=== PATIENT | male | born 1940 | race African-American/Black ===

== ENCOUNTER 2020-01-31 15:41 | Emergency (ER) | payer MEDICARE, OTHER ==
[2020-01-31 16:47] LABS: Bilirubin Negative (Negative); Blood, Urine Trace (Negative); Glucose, Urine (Dipstick) Negative (Negative); Ketone, Urine Trace mg/dL (Negative); Leukocyte Moderate (Negative); Nitrite Negative (Negative); Protein, Urine (Dipstick) > or equal to 300 mg/dL (Neg-Trace); Urobilinogen 0.2 mg/dL (Less than 2)
--- NOTE | 2020-01-31 16:47 | RAD ---
Exam: Chest one view HISTORY:Pain Comparison: None FINDINGS: Cardiac silhouette: Normal Aorta: Unremarkable Pulmonary vessels: Normal Costophrenic angles: Clear LUNGS: No masses or consolidation. Pneumothorax: None Osseous abnormalities: None IMPRESSION: No acute cardiopulmonary process.
[2020-01-31 16:55] LABS: Clarity Hazy (Clear)
[2020-01-31 16:57] LABS: WBC/HPF 21-50 HPF (0-3)
[2020-01-31 16:58] LABS: Bacteria/HPF 4+ HPF (None Seen); Squamous Epithelial 0-3 HPF (0-3)
[2020-01-31 16:58] LABS: ALT (SGPT) 8 U/L (8-55); AST (SGOT) 16 U/L (5-34); Albumin 4.3 g/dL (3.4-4.8); Alkaline Phosphatase 65 U/L (40-110); Anion Gap 19 mmol/L (10-20); BUN (Urea Nitrogen) 27 mg/dL (8.4-25.7); Bilirubin, Total 0.3 mg/dL (0.2-1.2); Calc. Creatinine Clearance 0 mL/min (70-130); Calcium 8.8 mg/dL (7.8-10.44); Carbon Dioxide 20 mmol/L (23-31); Chloride 109 mmol/L (98-107); Estimated GFR-MDRD 28; Globulin 3.9 g/dL (2.4-3.5); Glucose 109 mg/dL (83-110); Potassium 4.3 mmol/L (3.5-5.1); Protein, Total 8.2 g/dL (5.8-8.1); Sodium 144 mmol/L (136-145)
[2020-01-31] MEDS ORDERED: cefTRIAXone\\ROCEPHIN 1 GM VIAL ONE (17:09)
[2020-01-31] MEDS ORDERED: Ondansetron PF 4 MG/2 ML Vial ONE (17:09)
[2020-01-31] MEDS ORDERED: Sodium Chloride 0.9% 100 ML ONE (17:10)
[2020-01-31 17:16] LABS: Anisocytosis MODERATE=16-30 cells (100X) (0-5/hpf); Band 15 % (5-11); Basophilic Stippling SLIGHT = 1-2 cells (100X) (None Seen); Eosinophils 1 % (0-10); Hemoglobin 8.8 g/dL (14.0-18.0); Lymphocytes 20 % (21-51); MDiff Complete? YES; Macrocytosis SLIGHT = 6-15 cells (100X) (0-5/hpf); Mean Corpuscular HGB CONC 29.8 g/dL (32.0-36.0); Mean Corpuscular Hemoglobin 27.3 pg (27.0-31.0); Mean Corpuscular Volume 91.5 fL (78.0-98.0); Mean Platelet Volume 7.8 fL (7.4-10.4); Metamyelocyte 8 % (0-0); Monocytes 4 % (0-10); Myelocyte 7 % (0-0); Neutrophil 40 % (42-75); Nucleated RBC 6 % (0); Platelet Count 148 thou/uL (130-400); Platelet Morphology Comment Appears Adequate; Polychromasia MODERATE = 3-4 cells (100X) (0-2/hpf); RBC Distribution Width 20.3 % (11.5-14.5); Reactive Lymphocytes 5 % (0-10); Red Blood Cell (RBC) Count 3.21 mill/uL (4.70-6.10); Tear Drops SLIGHT = 2-5 cells (100X) (0-1/hpf); White Blood Cell (WBC) Count 11.7 thou/uL (4.8-10.8)
== END 2020-01-31 19:35 | disposition short-term general hospital (02) ==
LOC: NAV ERS 15:41
DX: N39.0 Urinary tract infection, site not specified (principal); D72.825 Bandemia; D75.81 Myelofibrosis; N28.9 Disorder of kidney and ureter, unspecified; E78.5 Hyperlipidemia, unspecified; I10 Essential (primary) hypertension; Z79.899 Other long term (current) drug therapy
CPT/HCPCS: 71045; 80053; 81003; 81015; 83605; 84443; 84484; 85025; 87077; 87086; 93005; 94760; 96365; 96375; J0696; J2405; J3490

== ENCOUNTER 2020-02-18 21:30 | Inpatient (IN) | payer OTHER ==
[2020-02-18 21:47] VITALS: BMI 19.6
[2020-02-18] MEDS ORDERED: Ondansetron ODT 4 MG TAB PO PRN (23:26)
[2020-02-18] MEDS ORDERED: Promethazine HCl 25 MG/ML VIAL IM PRN (23:27)
[2020-02-18] MEDS ORDERED: Boudreaux's Butt Paste 60 GM TUBE TOP PRN (23:31)
[2020-02-18] MEDS ORDERED: Bisacodyl 10 MG SUPP PR PRN (23:32)
[2020-02-18] MEDS ORDERED: hydrALAZINE 20 MG/ML VIAL SLOW IVP PRN (23:35)
[2020-02-18] MEDS ORDERED: Melatonin 3 MG TAB PO PRN (23:36)
[2020-02-18] MEDS ORDERED: EPOETIN ALFA-EPBX (ESRD) 10,000 UNIT/ML VIAL SC SCH (23:45)
[2020-02-18] MEDS ORDERED: Gabapentin 300 MG CAP PO SCH (23:45)
[2020-02-19] MEDS: Famotidine/PF 20 mg/2ml Vial SLOW IVP SCH (08:42)
[2020-02-19] MEDS: Gabapentin 300 MG CAP PO SCH ×3 (08:42→20:43)
[2020-02-19] MEDS: Lidocaine 5% Patch TD SCH (08:42)
[2020-02-19] MEDS: Calcitriol 0.25 MCG CAP PO SCH (08:42)
[2020-02-19] MEDS: Calcium Carbonate 500 MG ChewTAB PO SCH ×3 (08:42→17:26)
[2020-02-19] MEDS: Acetaminophen 325 MG TAB PO PRN ×2 (13:51→20:45)
[2020-02-19] MEDS: traMADol HCl 50 MG TAB PO PRN ×2 (13:51→20:43)
[2020-02-19] MEDS: Lidocaine Patch Removal 1 EACH TOP SCH (21:28)
[2020-02-20] MEDS: traMADol HCl 50 MG TAB PO PRN (08:02)
[2020-02-20] MEDS: Calcium Carbonate 500 MG ChewTAB PO SCH ×3 (08:05→17:09)
[2020-02-20] MEDS: Lidocaine 5% Patch TD SCH (08:05)
[2020-02-20] MEDS: Calcitriol 0.25 MCG CAP PO SCH (08:06)
[2020-02-20] MEDS: Gabapentin 300 MG CAP PO SCH ×4 (08:07→20:41)
[2020-02-20] MEDS: Famotidine/PF 20 mg/2ml Vial SLOW IVP SCH (08:07)
[2020-02-20] MEDS: Bisacodyl 10 MG SUPP PR SCH (20:38)
[2020-02-20] MEDS: Polyethylene Glycol 3350 17 GM Packet PO SCH (20:38)
[2020-02-20] MEDS: Lidocaine Patch Removal 1 EACH TOP SCH (20:41)
[2020-02-21] MEDS: Polyethylene Glycol 3350 17 GM Packet PO SCH (08:12)
[2020-02-21] MEDS: Bisacodyl 10 MG SUPP PR SCH ×2 (08:13→20:58)
[2020-02-21] MEDS: Calcitriol 0.25 MCG CAP PO SCH (08:13)
[2020-02-21] MEDS: Gabapentin 300 MG CAP PO SCH (08:13)
[2020-02-21] MEDS: Famotidine/PF 20 mg/2ml Vial SLOW IVP SCH (08:13)
[2020-02-21] MEDS: Calcium Carbonate 500 MG ChewTAB PO SCH ×3 (08:13→18:58)
[2020-02-21] MEDS: Lidocaine 5% Patch TD SCH (08:16)
--- NOTE | 2020-02-21 11:20 | PRG ---
DATE OF SERVICE: 02/19/2020 SUBJECTIVE: The patient feels well with only complaints of constipation. He has been cooperating well with therapy and he is doing well after dialysis yesterday. He has no shortness of breath, chest pain, or abdominal pain, is eating fairly well. OBJECTIVE: VITAL SIGNS: Show temperature, however, 96.7, pulse 89, respirations 22, O2 sats 98% on room air, blood pressure 136/61. LUNGS: Clear. CARDIAC: Shows regular rhythm. ABDOMEN: Soft and nontender. SKIN/EXTREMITIES: Display decreased skin turgor. No edema, clubbing, or cyanosis. NEUROLOGIC: Shows no focal findings. ASSESSMENT: 1. End-stage renal disease, on hemodialysis. 2. Severe deconditioning, on PT/OT. 3. Peripheral vascular disease, asymptomatic. 4. Hypertension, controlled to goal. 5. Benign prostatic hypertrophy with lower tract obstructive symptoms, stable. PLAN: 1. Continue PT, OT. 2. MiraLAX 17 g twice daily. Colace twice daily. 3. Monitor vital signs closely with therapy. 4. Continue hemodialysis 3 times weekly. 5. Obtain labs at the end of the week. Job ID: [id number]
--- NOTE | 2020-02-21 11:37 | PRG ---
DATE OF SERVICE: 02/20/2020 SUBJECTIVE: The patient feels well, up working with therapy with no complaints. OBJECTIVE: VITAL SIGNS: Show temperature 97.9, pulse 105, respirations 20, O2 saturations 100% on room air, temperature was 100.6 yesterday. LUNGS: Clear. CARDIAC: Shows regular rhythm. ABDOMEN: Soft and nontender. SKIN/EXTREMITIES: Display no edema, clubbing, or cyanosis. ASSESSMENT: 1. Stable end-stage renal disease, going to hemodialysis today and 3 times weekly. 2. Deconditioning, improving with therapy. 3. Hypertension, controlled to goal. 4. Peripheral vascular disease, asymptomatic. 5. Myelofibrosis, stable. PLAN: CBC and comprehensive metabolic profile in the a.m. Continue PT, OT, dialysis this afternoon. Monitor vital signs closely with therapy. Stress ulcer and DVT prophylaxis. Job ID: [id number]
[2020-02-21 13:23] LABS: ALT (SGPT) 11 U/L (8-55); AST (SGOT) 29 U/L (5-34); Albumin 3.5 g/dL (3.4-4.8); Alkaline Phosphatase 101 U/L (40-110); Anion Gap 19 mmol/L (10-20); BUN (Urea Nitrogen) 33 mg/dL (8.4-25.7); Bilirubin, Total 0.6 mg/dL (0.2-1.2); Calc. Creatinine Clearance 25 mL/min (70-130); Calcium 8.4 mg/dL (7.8-10.44); Carbon Dioxide 23 mmol/L (23-31); Chloride 103 mmol/L (98-107); Estimated GFR-MDRD 40; Globulin 4.2 g/dL (2.4-3.5); Glucose 98 mg/dL (83-110); Potassium 4.4 mmol/L (3.5-5.1); Protein, Total 7.7 g/dL (5.8-8.1); Sodium 141 mmol/L (136-145)
[2020-02-21] MEDS ORDERED: Polyethylene Glycol 3350 17 GM Packet PO PRN (16:21)
[2020-02-21 16:48] LABS: Hemoglobin 9.6 g/dL (14.0-18.0); Mean Corpuscular HGB CONC 30.7 g/dL (32.0-36.0); Mean Corpuscular Hemoglobin 27.8 pg (27.0-31.0); Mean Corpuscular Volume 90.4 fL (78.0-98.0); Mean Platelet Volume 11.2 fL (7.4-10.4); Platelet Count 119 thou/uL (130-400); RBC Distribution Width 16.1 % (11.5-14.5); Red Blood Cell (RBC) Count 3.46 mill/uL (4.70-6.10); White Blood Cell (WBC) Count 16.9 thou/uL (4.8-10.8)
--- NOTE | 2020-02-21 17:00 | HP ---
HISTORY OF PRESENT ILLNESS: The patient is a very pleasant 79-year-old black male with a significant history of myelofibrosis, benign prostatic hypertrophy, hypertension, chronic kidney disease, has recently been admitted to [facility] for urinary tract infection with subsequent finding of high-grade small-bowel obstruction requiring exploratory laparotomy and lysis of adhesions. He developed postoperatively complications of hypoxic respiratory failure requiring extended ventilator management. He also had acute kidney injury with progressive worsening of renal function with failure to recover and subsequently was initiated on dialysis by Dr. Addy King. He has been getting dialysis on Monday, , and Monday and has slowly been getting stronger and stronger with advanced diet, but was requiring extensive physical therapy because of significant weakness secondary to his surgery and dialysis and respiratory failure. He is breathing much better. Surgery has signed off the patient, but he has been unable to maintain his ADLs and therefore was transferred to [facility] SN[facility] for continued PT/OT and outpatient dialysis. PAST MEDICAL HISTORY: Remarkable for the above-mentioned chronic kidney disease stage 3, hypertension, hyperlipidemia, benign prostatic hypertrophy, peripheral vascular disease, myelofibrosis. PAST SURGICAL HISTORY: Positive for right femoral arterial bypass, bone marrow biopsy. FAMILY MEDICAL HISTORY: Noncontributory. SOCIAL HISTORY: He is a nonsmoker, nondrinker. He obtains his care at the [facility] in [place]. MEDICATIONS: On admission to [facility], he was taking medications of; 1. Tramadol 50 mg as needed for pain. 2. Nepro supplemental nutrition twice daily. 3. Phenergan 25 mg as needed. 4. Zofran 4 mg as needed. 5. MiraLAX 17 g as needed. 6. Gabapentin 300 mg 3 times daily. 7. daily. REVIEW OF SYSTEMS: HEENT: He denies any headaches, dizziness, change in vision or hearing, hoarseness or dysphagia. PULMONARY: He denies cough, sputum production, pneumonia, asthma, or tuberculosis. CARDIOVASCULAR: He has a history of hypertension, hyperlipidemia, and claudication with peripheral vascular disease in the right leg, status post femoral arterial bypass. GENITOURINARY: He has decreased urinary stream and nocturia treated with Myrbetriq 25 mg daily, finasteride 5 mg daily, Plavix 75 daily, carvedilol 12.5 twice daily, atorvastatin 10 daily, amlodipine 10 daily, tamsulosin 0.4 nightly. These are in addition to his previous discharge medications. PHYSICAL EXAMINATION: GENERAL: The patient is a thin, cachectic black male, appears weak, but no acute distress. VITAL SIGNS: Show him to have blood pressure of 121/57, temperature is 99, pulse 94, respirations 18, O2 sats 97% on room air. HEENT: Pupils equal, round, and reactive to light and accommodation. Sclerae anicteric. Conjunctivae pale. Oral mucous membranes well dehydrated. NECK: Supple. There are no nodes or masses. JVP is not elevated. LUNGS: Show decreased breath sounds with no rales or rhonchi. CARDIAC: Shows regular rhythm with an S4 gallop. No murmurs. ABDOMEN: Soft and nontender with no masses or organomegaly. SKIN/EXTREMITIES: Show central dialysis catheter in place. Decreased skin turgor. No edema, clubbing, or cyanosis. NEUROLOGIC: Intact. LABORATORY DATA: Most recent laboratory shows white count of 14,300, hematocrit 23, hemoglobin 7.5. Sodium 139, potassium 3.7, chloride 104, bicarb 25, BUN 25, creatinine 2.5. PTH 372. There is no recent urinalysis. ASSESSMENT: 1. End-stage renal disease, on hemodialysis 3 times weekly, being followed by Dr. King with apparent no recover from acute kidney injury on chronic kidney disease. 2. Small bowel obstruction, status post lysis of adhesion with complete recovery. 3. Severe deconditioning, status post recent surgery and acute on chronic kidney disease. 4. Myelofibrosis, being followed at [facility], stable. 5. Benign prostatic hypertrophy, lower tract obstructive symptoms, being treated with finasteride and Myrbetriq. 6. Peripheral vascular disease, stable on Plavix. No claudication. PLAN: 1. Continue PT, OT. 2. Continue pre-hospitalization medications. 3. Continue dialysis 3 times weekly. 4. Stress ulcer and DVT prophylaxis. Job ID: [id number]
--- NOTE | 2020-02-21 17:22 | PRG ---
DATE OF SERVICE: 02/21/2020 SUBJECTIVE: The patient feels well except for several loose bowel movements after having his MiraLAX. Docusate made routinely twice daily. He got his dialysis at this time with no shortness of breath or chest pain. He is eating well and did cooperate with therapy. OBJECTIVE: VITAL SIGNS: Shows blood pressure is 118/70, pulse 106, temperature is , O2 saturations 97% on room air. LUNGS: Clear. CARDIAC: Showed regular rhythm. ABDOMEN: Soft and nontender. ASSESSMENT: 1. Stable end-stage renal disease, on hemodialysis. 2. Resolved intestinal obstruction. 3. Stable myelofibrosis. 4. Improving deconditioning. PLAN: 1. Continue PT and OT. 2. Continue hemodialysis, Monday, and Monday. 3. Monitor closely. 4. Review labs and therapy notes. 5. Stress increased oral intake. Job ID: [id number]
[2020-02-21] MEDS: Carvedilol 6.25 MG TAB PO SCH (18:58)
[2020-02-21 20:10] LABS: Band 4 % (5-11); Eosinophils 1 % (0-10); Lymphocytes 20 % (21-51); MDiff Complete? YES; Monocytes 15 % (0-10); Neutrophil 60 % (42-75); Nucleated RBC 1 % (0)
[2020-02-21] MEDS: Famotidine 20 MG TAB PO SCH (20:57)
[2020-02-21] MEDS: Tamsulosin HCl 0.4 MG CAP PO SCH (20:57)
[2020-02-21] MEDS: Melatonin 3 MG TAB PO PRN (20:57)
[2020-02-21] MEDS: Atorvastatin Calcium 10 MG TAB PO SCH (20:58)
[2020-02-21] MEDS: Lidocaine Patch Removal 1 EACH TOP SCH (20:58)
[2020-02-22] MEDS: traMADol HCl 50 MG TAB PO PRN ×2 (02:15→19:53)
[2020-02-22] MEDS: Carvedilol 6.25 MG TAB PO SCH ×2 (08:50→17:04)
[2020-02-22] MEDS: Lidocaine 5% Patch TD SCH (08:50)
[2020-02-22] MEDS: Calcium Carbonate 500 MG ChewTAB PO SCH ×3 (08:50→17:05)
[2020-02-22] MEDS: Ferrous Gluconate 324 MG TAB PO SCH (08:54)
[2020-02-22] MEDS: Clopidogrel Bisulfate 75 MG TAB PO SCH (08:55)
[2020-02-22] MEDS: Gabapentin 100 MG CAP PO SCH (08:55)
[2020-02-22] MEDS: Famotidine 20 MG TAB PO SCH ×2 (08:56→19:59)
[2020-02-22] MEDS: Bisacodyl 10 MG SUPP PR SCH ×2 (08:57→20:03)
[2020-02-22] MEDS: Calcitriol 0.25 MCG CAP PO SCH (08:57)
[2020-02-22] MEDS: Finasteride 5 MG TAB PO SCH (08:58)
[2020-02-22] MEDS ORDERED: Gabapentin 300 MG CAP PO SCH (09:00)
[2020-02-22] MEDS: Atorvastatin Calcium 10 MG TAB PO SCH (19:59)
[2020-02-22] MEDS: Melatonin 3 MG TAB PO PRN (19:59)
[2020-02-22] MEDS: Tamsulosin HCl 0.4 MG CAP PO SCH (19:59)
[2020-02-22] MEDS: Lidocaine Patch Removal 1 EACH TOP SCH (20:00)
--- NOTE | 2020-02-22 21:28 | PRG ---
DATE OF SERVICE: 02/22/2020 SUBJECTIVE: The patient lying in in the bed, feels well except for intermittent severe spasms in his right calf. This resolves with hot packs, but occurs intermittently throughout the day. He has no shortness of breath or chest pain, nausea or vomiting. OBJECTIVE: VITAL SIGNS: Shows his temperature is 98, pulse 86, respirations 20, O2 sats 94% on room air, blood pressure 134/64. LABORATORY DATA: White count 16,900 with hematocrit 31, hemoglobin 11.6. Sodium 141, potassium 4.4, chloride 103, bicarb 23, BUN 33, creatinine 1.96, on dialysis, glucose 98, calcium 8.4. ASSESSMENT: 1. Acute on chronic renal failure, appears to be end-stage renal disease, on chronic dialysis, this time being monitored by Nephrology. Dialysis 3 times weekly. 2. History of intestinal obstruction, resolved with surgery signed off. 3. Recurrent muscle spasms. Treat with hot packs and pain medications, it appears to improve with these. 4. Stable myelofibrosis with persistent leukocytosis. No evidence of infection. 5. Deconditioning, improving with therapy. PLAN: 1. Continue PT, OT. 2. Continue dialysis 3 times weekly. 3. Hot packs to right calf and monitor closely. I do not feel this is a deep venous thrombosis. 4. Monitor laboratory again next week. Job ID: [id number]
[2020-02-23] MEDS: Bisacodyl 10 MG SUPP PR SCH ×2 (08:43→21:06)
[2020-02-23] MEDS: Calcium Carbonate 500 MG ChewTAB PO SCH ×3 (08:43→17:30)
[2020-02-23] MEDS: Clopidogrel Bisulfate 75 MG TAB PO SCH (08:44)
[2020-02-23] MEDS: Carvedilol 6.25 MG TAB PO SCH ×2 (08:44→17:29)
[2020-02-23] MEDS: Gabapentin 100 MG CAP PO SCH (08:44)
[2020-02-23] MEDS: Famotidine 20 MG TAB PO SCH ×2 (08:44→21:07)
[2020-02-23] MEDS: Ferrous Gluconate 324 MG TAB PO SCH (08:44)
[2020-02-23] MEDS: Finasteride 5 MG TAB PO SCH (08:44)
[2020-02-23] MEDS: Calcitriol 0.25 MCG CAP PO SCH (08:45)
[2020-02-23] MEDS: Lidocaine 5% Patch TD SCH (08:45)
[2020-02-23] MEDS: traMADol HCl 50 MG TAB PO PRN ×2 (13:29→21:07)
[2020-02-23] MEDS: Acetaminophen 325 MG TAB PO PRN (21:06)
[2020-02-23] MEDS: Tamsulosin HCl 0.4 MG CAP PO SCH (21:06)
[2020-02-23] MEDS: Atorvastatin Calcium 10 MG TAB PO SCH (21:07)
[2020-02-23] MEDS: Lidocaine Patch Removal 1 EACH TOP SCH (21:08)
[2020-02-24] MEDS: Lidocaine 5% Patch TD SCH (08:34)
[2020-02-24] MEDS: Famotidine 20 MG TAB PO SCH ×2 (08:35→21:02)
[2020-02-24] MEDS: Gabapentin 100 MG CAP PO SCH (08:35)
[2020-02-24] MEDS: Ferrous Gluconate 324 MG TAB PO SCH (08:35)
[2020-02-24] MEDS: Clopidogrel Bisulfate 75 MG TAB PO SCH (08:35)
[2020-02-24] MEDS: Finasteride 5 MG TAB PO SCH (08:35)
[2020-02-24] MEDS: Calcitriol 0.25 MCG CAP PO SCH (08:35)
[2020-02-24] MEDS: Carvedilol 6.25 MG TAB PO SCH ×2 (08:35→16:33)
[2020-02-24] MEDS: Calcium Carbonate 500 MG ChewTAB PO SCH ×3 (08:35→16:33)
[2020-02-24] MEDS: Bisacodyl 10 MG SUPP PR SCH ×2 (08:37→21:03)
[2020-02-24] MEDS: Tamsulosin HCl 0.4 MG CAP PO SCH (21:03)
[2020-02-24] MEDS: Atorvastatin Calcium 10 MG TAB PO SCH (21:03)
[2020-02-24] MEDS: Lidocaine Patch Removal 1 EACH TOP SCH (21:04)
[2020-02-24] MEDS: traMADol HCl 50 MG TAB PO PRN (21:04)
[2020-02-25 05:46] LABS: Anion Gap 16 mmol/L (10-20); Anisocytosis SLIGHT = 6-15 cells (100X) (0-5/hpf); BUN (Urea Nitrogen) 38 mg/dL (8.4-25.7); Band 25 % (5-11); Calc. Creatinine Clearance 30 mL/min (70-130); Calcium 8.7 mg/dL (7.8-10.44); Carbon Dioxide 24 mmol/L (23-31); Chloride 105 mmol/L (98-107); Eosinophils 2 % (0-10); Estimated GFR-MDRD 50; Glucose 86 mg/dL (83-110); Hemoglobin 6.7 g/dL (14.0-18.0); Hypochromia SLIGHT = 6-15 cells (100X) (0-5/hpf); Lymphocytes 20 % (21-51); MDiff Complete? YES; Mean Corpuscular HGB CONC 30.6 g/dL (32.0-36.0); Mean Corpuscular Hemoglobin 27.8 pg (27.0-31.0); Mean Corpuscular Volume 90.8 fL (78.0-98.0); Mean Platelet Volume 10.6 fL (7.4-10.4); Metamyelocyte 5 % (0-0); Monocytes 4 % (0-10); Neutrophil 44 % (42-75); Nucleated RBC 2 % (0); Ovalocytes SLIGHT = 2-5 cells (100X) (0-1/hpf); Platelet Count 107 thou/uL (130-400); Platelet Morphology Comment Appears Decreased; Polychromasia SLIGHT = 2-3 cells (100X) (0-2/hpf); Potassium 4.6 mmol/L (3.5-5.1); RBC Distribution Width 16.4 % (11.5-14.5); Red Blood Cell (RBC) Count 2.43 mill/uL (4.70-6.10); Sodium 140 mmol/L (136-145)
--- NOTE | 2020-02-25 08:01 | PRG ---
DATE OF SERVICE: 02/24/2020 SUBJECTIVE: This is an 79-year-old male who was originally admitted for PT and OT Services following previous admission to [facility] for a UTI and subsequent small bowel obstruction. Patient was started on dialysis by Dr. Addy King. Patient has been going through dialysis well, however, his last session was extended according to him. He was therefore approximately 7 hours with different regimens being used for dialysis. This was very distressing for the patient. He did not like being there for that long. Today, he states that he does not want to go to dialysis because he does not understand why he is going there and he did not like how long it took last time. I discussed with him that he was put on dialysis initially at [facility] by Dr. King because the kidneys were not processing well. I discussed that we would just need to monitor his chemistries and consult Dr. King to see if he still requires dialysis. He is actually putting out a liter of urine through his catheter and is making urine. I informed him that he should go through with dialysis today and then, we will talk with Dr. King later this week to see what his thoughts are. OBJECTIVE: VITAL SIGNS: Today, 98 temperature, pulse 92, respiratory rate 22, 100% saturations on room air, blood pressure 130/60. GENERAL: Patient is a well-appearing 79-year-old male, in no acute distress. Lying in bed comfortably. He does have intermittent muscle spasms when I am talking to him, which does cause him to have some pain. However, overall, he is doing well. RESPIRATORY: Clear to auscultation bilaterally with no wheeze or rhonchi. CV: Regular rate and rhythm. No murmurs, gallops, or rubs. EXTREMITIES: He does have a temporary dialysis port in his left subcu chest with no erythema or warmth surrounding it. No edema seen. ASSESSMENT: 1. Acute on chronic renal failure, appears to be end-stage renal disease, needs dialysis, being monitored by Nephrology. Dialysis 3 times a week. 2. History of intestinal obstruction, resolved. Surgery has signed off on patient. 3. Recurrent muscle spasms. 4. Stable myelofibrosis with persistent leukocytosis. 5. Deconditioning, improving with therapy. PLAN: 1. Continue PT and OT. 2. Continue dialysis 3 times a week. We will get repeat blood work in the morning. We will need to talk to Dr. King about his prognosis and if patient still requires dialysis with him now making urine through his catheter. 3. Continue hot packs to his right calf and in the areas of muscle spasms. Monitor closely. 4. Lab work in a.m. Job ID: [id number]
[2020-02-25] MEDS: Lidocaine 5% Patch TD SCH (09:08)
[2020-02-25] MEDS: Gabapentin 100 MG CAP PO SCH (09:09)
[2020-02-25] MEDS: Carvedilol 6.25 MG TAB PO SCH ×2 (09:09→17:20)
[2020-02-25] MEDS: Calcitriol 0.25 MCG CAP PO SCH (09:09)
[2020-02-25] MEDS: Calcium Carbonate 500 MG ChewTAB PO SCH ×3 (09:09→17:19)
[2020-02-25] MEDS: Ferrous Gluconate 324 MG TAB PO SCH (09:10)
[2020-02-25] MEDS: Famotidine 20 MG TAB PO SCH ×2 (09:10→21:33)
[2020-02-25] MEDS: Finasteride 5 MG TAB PO SCH (09:10)
[2020-02-25] MEDS: Clopidogrel Bisulfate 75 MG TAB PO SCH (09:10)
[2020-02-25] MEDS: Bisacodyl 10 MG SUPP PR SCH ×2 (09:11→21:36)
[2020-02-25] MEDS: Atorvastatin Calcium 10 MG TAB PO SCH (21:33)
[2020-02-25] MEDS: Tamsulosin HCl 0.4 MG CAP PO SCH (21:33)
[2020-02-25] MEDS: Lidocaine Patch Removal 1 EACH TOP SCH (21:35)
[2020-02-26] MEDS: Clopidogrel Bisulfate 75 MG TAB PO SCH (08:00)
[2020-02-26] MEDS: Famotidine 20 MG TAB PO SCH ×2 (08:00→20:52)
[2020-02-26] MEDS: Calcitriol 0.25 MCG CAP PO SCH (08:00)
[2020-02-26] MEDS: Calcium Carbonate 500 MG ChewTAB PO SCH ×3 (08:01→17:00)
[2020-02-26] MEDS: Gabapentin 100 MG CAP PO SCH (08:01)
[2020-02-26] MEDS: Bisacodyl 10 MG SUPP PR SCH ×2 (08:01→20:53)
[2020-02-26] MEDS: Finasteride 5 MG TAB PO SCH (08:01)
[2020-02-26] MEDS: Ferrous Gluconate 324 MG TAB PO SCH (08:01)
[2020-02-26] MEDS: Lidocaine 5% Patch TD SCH (08:05)
[2020-02-26] MEDS: Carvedilol 6.25 MG TAB PO SCH ×2 (08:06→17:00)
[2020-02-26] MEDS ORDERED: EPOETIN ALFA-EPBX (ESRD) 10,000 UNIT/ML VIAL SC SCH (12:30)
[2020-02-26] MEDS: traMADol HCl 50 MG TAB PO PRN (14:32)
[2020-02-26] MEDS: Acetaminophen 325 MG TAB PO PRN (14:32)
[2020-02-26] MEDS: Tamsulosin HCl 0.4 MG CAP PO SCH (20:52)
[2020-02-26] MEDS: Cyclobenzaprine 10 MG TAB PO PRN (20:52)
[2020-02-26] MEDS: Atorvastatin Calcium 10 MG TAB PO SCH (20:52)
[2020-02-26] MEDS: Lidocaine Patch Removal 1 EACH TOP SCH (20:53)
--- NOTE | 2020-02-27 06:44 | PRG ---
DATE OF SERVICE: 02/25/2020 SUBJECTIVE: The patient is complaining of pain in his right calf intermittently. This has responded somewhat to hot packs and is intermittent and mainly occurs at night. There is no history of trauma or swelling. He has not undergone dialysis as his catheter is clogged and he is attempting to have it de-clog at [facility]. OBJECTIVE: LUNGS: Clear. CARDIAC: Shows regular rhythm. EXTREMITIES: Pedal pulses are faint, but palpable. There is no swelling of the right leg, but severe tenderness on palpation. LABORATORY DATA: Shows his white count is down 10,000, hemoglobin down 6.7, hematocrit 22, but he has not received his epoetin last week and will be started on this. His creatinine, however, is down to 1.61. Sodium is 140, potassium 4.6, chloride 105, bicarb is 24. ASSESSMENT: 1. Right leg tenderness, possibly due to arterial insufficiency. 2. Chronic kidney disease, stage 4, improving from acute kidney injury, and we will monitor. 3. Resolving laparotomy from intestinal obstruction. 4. Stable myelofibrosis. PLAN: Continue PT, OT. Hold dialysis. Hot packs to right calf and we will start on tizanidine at night. Continue to monitor laboratory. Job ID: [id number]
--- NOTE | 2020-02-27 06:48 | PRG ---
DATE OF SERVICE: 02/26/2020 SUBJECTIVE: The patient is having severe pain in his right leg at all times now by muscle relaxant and hot packs. This is more consistent apparently now with possible ischemia. His renal function has improved and Nephrology is wished to hold off on dialysis and repeat next week. He is unable to do therapy, however because of pain in his legs. OBJECTIVE: EXTREMITIES: Right calf is soft, but severely tenderness, tender to the touch. Pedal pulses not palpable, but foot is warm. LUNGS: Clear. CARDIAC: Shows regular rhythm. ABDOMEN: Soft and nontender. ASSESSMENT: Severe pain in right calf, most likely arterial, but concerned about doing CT angio because of recent renal failure and we will get abdominal ultrasound. We will get venous Doppler first and discuss with Nephrology about possible CT angio if no improvement or diagnosis tomorrow. Job ID: [id number]
[2020-02-27] MEDS: Lidocaine 5% Patch TD SCH (08:05)
[2020-02-27] MEDS: Calcium Carbonate 500 MG ChewTAB PO SCH ×3 (08:05→17:38)
[2020-02-27] MEDS: Carvedilol 6.25 MG TAB PO SCH ×2 (08:06→17:38)
[2020-02-27] MEDS: Ferrous Gluconate 324 MG TAB PO SCH (08:06)
[2020-02-27] MEDS: Bisacodyl 10 MG SUPP PR SCH ×2 (08:06→21:57)
[2020-02-27] MEDS: Clopidogrel Bisulfate 75 MG TAB PO SCH (08:07)
[2020-02-27] MEDS: Calcitriol 0.25 MCG CAP PO SCH (08:07)
[2020-02-27] MEDS: Gabapentin 100 MG CAP PO SCH (08:07)
[2020-02-27] MEDS: Finasteride 5 MG TAB PO SCH (08:07)
[2020-02-27] MEDS: Famotidine 20 MG TAB PO SCH ×2 (08:07→21:53)
[2020-02-27 08:46] LABS: ALT (SGPT) 18 U/L (8-55); AST (SGOT) 29 U/L (5-34); Albumin 3.6 g/dL (3.4-4.8); Alkaline Phosphatase 78 U/L (40-110); Anion Gap 17 mmol/L (10-20); BUN (Urea Nitrogen) 40 mg/dL (8.4-25.7); Bilirubin, Total 0.5 mg/dL (0.2-1.2); Calc. Creatinine Clearance 28 mL/min (70-130); Calcium 8.7 mg/dL (7.8-10.44); Carbon Dioxide 22 mmol/L (23-31); Chloride 106 mmol/L (98-107); Estimated GFR-MDRD 47; Globulin 3.8 g/dL (2.4-3.5); Glucose 110 mg/dL (83-110); Potassium 4.2 mmol/L (3.5-5.1); Protein, Total 7.4 g/dL (5.8-8.1); Sodium 141 mmol/L (136-145)
[2020-02-27 09:11] LABS: Hemoglobin 6.4 g/dL (14.0-18.0); Mean Corpuscular HGB CONC 31.4 g/dL (32.0-36.0); Mean Corpuscular Volume 89.1 fL (78.0-98.0); Mean Platelet Volume 8.8 fL (7.4-10.4); Platelet Count 113 thou/uL (130-400); RBC Distribution Width 16.2 % (11.5-14.5); White Blood Cell (WBC) Count 8.5 thou/uL (4.8-10.8)
[2020-02-27 09:12] LABS: MDiff Complete? YES
[2020-02-27 09:16] LABS: Anisocytosis SLIGHT = 6-15 cells (100X) (0-5/hpf); Band 11 % (5-11); Hypochromia MODERATE=16-30 cells (100X) (0-5/hpf); Lymphocytes 20 % (21-51); Monocytes 15 % (0-10); Neutrophil 54 % (42-75); Platelet Morphology Comment Appears Decreased
[2020-02-27] MEDS: traMADol HCl 50 MG TAB PO PRN (17:53)
[2020-02-27 20:08] LABS: Hemoglobin 7.5 g/dL (14.0-18.0)
[2020-02-27] MEDS: Atorvastatin Calcium 10 MG TAB PO SCH (21:53)
[2020-02-27] MEDS: Melatonin 3 MG TAB PO PRN (21:54)
[2020-02-27] MEDS: Cyclobenzaprine 10 MG TAB PO PRN (21:54)
[2020-02-27] MEDS: Tamsulosin HCl 0.4 MG CAP PO SCH (21:54)
[2020-02-27] MEDS: HYDROcodone/Acetaminophen 5/325 mg Tablet PO PRN (21:54)
[2020-02-27] MEDS: Lidocaine Patch Removal 1 EACH TOP SCH (21:56)
[2020-02-28] MEDS: HYDROcodone/Acetaminophen 5/325 mg Tablet PO PRN ×2 (03:00→15:53)
[2020-02-28] MEDS: Lidocaine 5% Patch TD SCH (08:40)
[2020-02-28] MEDS: Famotidine 20 MG TAB PO SCH (08:40)
[2020-02-28] MEDS: Ferrous Gluconate 324 MG TAB PO SCH (08:40)
[2020-02-28] MEDS: Gabapentin 100 MG CAP PO SCH (08:40)
[2020-02-28] MEDS: Calcitriol 0.25 MCG CAP PO SCH (08:40)
[2020-02-28] MEDS: Calcium Carbonate 500 MG ChewTAB PO SCH ×3 (08:40→16:31)
[2020-02-28] MEDS: Finasteride 5 MG TAB PO SCH (08:40)
[2020-02-28] MEDS: Clopidogrel Bisulfate 75 MG TAB PO SCH (08:40)
[2020-02-28] MEDS: Carvedilol 6.25 MG TAB PO SCH ×2 (08:41→15:54)
[2020-02-28] MEDS: Bisacodyl 10 MG SUPP PR SCH ×2 (08:41→08:49)
--- NOTE | 2020-02-28 15:31 | PRG ---
DATE OF SERVICE: 02/27/2020 SUBJECTIVE: The patient is having more severe pain in his right leg now at all times with no relief with pain medication and at rest. OBJECTIVE: EXTREMITIES: Showed right foot is still warm but absent pulse. Right calf is tender to palpation, although no swelling. VITAL SIGNS: Show blood pressure of 109/74, temperature is 97, pulse 101, respirations 20, O2 saturations 100% on room air. LUNGS: Clear. CARDIAC: Showed regular rhythm. ABDOMEN: Soft and nontender. SKIN/EXTREMITIES: As above. ASSESSMENT: Severe right leg pain with absent pulse, consistent with arterial ischemia in a patient with severe peripheral vascular disease and a history of a previous right femoral arterial bypass. His renal function has improved to a GFR of 50, but Radiology is concerned about giving him dye. PLAN: Arterial and venous Doppler tomorrow plus possible transfer for tertiary care to Cardiology and Cardiovascular Surgery in [facility], the patient wishes to go there. Continue Plavix. Transfuse 1 unit of packed cells, his hemoglobin is down to 6.4 despite being given Procrit. Job ID: [id number]
[2020-02-28] MEDS: Acetaminophen 325 MG TAB PO PRN (15:52)
[2020-02-28] MEDS: Cyclobenzaprine 10 MG TAB PO PRN (15:52)
[2020-02-28 15:54] VITALS: BP 140/73
[2020-02-28 16:01] VITALS: TEMP 100.3
--- NOTE | 2020-02-29 15:52 | DIS ---
DATE OF ADMISSION: 02/18/2020 DATE OF DISCHARGE: 02/28/2020 [facility]. Date of transfer to [facility], February 28, 2020. FINAL DIAGNOSES: 1. Acute ischemia of the right leg in a patient with previous multiple surgeries of the right leg and a right femoral arterial bypass. 2. Acute kidney injury on chronic kidney injury stabilizing, status post recent dialysis with a GFR stabilizing at 50. 3. Chronic kidney disease with right renal atrophy, being followed by Dr. King with no dialysis for several days. PHYSICAL EXAMINATION: VITAL SIGNS: Now show a blood pressure of 100/54, temperature 97, pulse 79, respirations 17, O2 sats on room air. LUNGS: Clear. CARDIAC: Shows regular rhythm. ABDOMEN: Soft and nontender. Absent pulses of the right leg with tenderness to palpation below the calf touch. LABORATORY DATA: Today his white count is 8500, hematocrit is 23, hemoglobin 7.9. Sodium 141, potassium 4.2, chloride 106, bicarb . Discussed the case with hospitalist, Dr. Shipman, and he feels that he should be transferred to the ER for more emergent evaluation as he has not seen a relief master or cardiovascular surgeon, and does not have a P and is a [place] and follows at the [facility], so transportation arranged to ER and . Job ID: [id number]
--- NOTE | 2020-03-02 11:41 | PQF ---
CLINICAL DOCUMENTATION CLARIFICATION FORM: Dear : Edward Berry MD Date / Time: 03/02/2020 Please exercise your independent, professional judgment in responding to the clarification form. Clinical indicators are provided on the bottom of this form for your review Please check appropriate box(es): Conflicting documentation was noted in the Medical Record; please clarify if patient is being treated/monitored for: [ ] ESRD [ ] CKD stage 4 [ ] Other diagnosis (Please specify if any) [ ] Unable to determine Physician Signature: Date/Time: For continuity of documentation, please document condition throughout progress notes and discharge summary. Thank You. To be completed by CDI/Coding staff for physician review: w Present w Clinical Indicators - Signs / Symptoms / Labs w Results and Location in Medical Record w [ x ] w He also had acute kidney injury with progressive worsening of renal function with failure to recover and subsequently was initiated on dialysis by Dr.Fred arango w H&P on 02/20 w [x ] w End stage renal disease on hemodialysis 3 times weekly. w H&P on 02/20 w [x ] w Chronic kidney disease stage 4, improving from DELANO. w Progress notes on 02/26 w [x ] w Estimated GFR 40 w Laboratory on 02/20 w Present w Risk Factors w Results and Location in Medical Record w [ x] w Hypertension w H&P on 02/20 w [ x] w History of CKD stage 3 w H&P on 02/20 w [ ] w w w Present w Treatments w Results and Location in Medical Record w [ x ] w He got his dialysis at this time with no SOB or chest pain w Progress notes on 02/20 w [ ] w w w [ ] w w CDS/Associate Store Director Signature: AAS Phone #: Date/Time: 2019 This is a permanent part of the Medical Record [facility]
[2020-03-04] MEDS ORDERED: EPOETIN ALFA-EPBX (ESRD) 10,000 UNIT/ML VIAL SC SCH (09:00)
== END 2020-02-28 16:32 | disposition short-term general hospital (02) | DRG 949 ==
LOC: NAV ACUTE 21:30
PROVIDERS: ADMIT Internal Medicine; ATTEND Internal Medicine
PROC: 5A1D70Z Performance of Urinary Filtration, Intermittent, Less than 6 Hours Per Day (ICD-10-PCS; 2020-02-21)
PROC: 30233N1 Transfusion of Nonautologous Red Blood Cells into Peripheral Vein, Percutaneous Approach (ICD-10-PCS; principal; 2020-02-27)
DX: Z48.815 Encounter for surgical aftercare following surgery on the digestive system (principal); D75.81 Myelofibrosis; N17.9 Acute kidney failure, unspecified; E27.40 Unspecified adrenocortical insufficiency; K56.609 Unspecified intestinal obstruction, unspecified as to partial versus complete obstruction; N18.4 Chronic kidney disease, stage 4 (severe); M62.81 Muscle weakness (generalized); I99.8 Other disorder of circulatory system; I73.9 Peripheral vascular disease, unspecified; N40.1 Benign prostatic hyperplasia with lower urinary tract symptoms; R53.81 Other malaise; Z99.2 Dependence on renal dialysis; Z98.890 Other specified postprocedural states; Z79.899 Other long term (current) drug therapy; I12.9 Hypertensive chronic kidney disease with stage 1 through stage 4 chronic kidney disease, or unspecified chronic kidney disease
CPT/HCPCS: 36415; 36430; 80048; 80053; 85025; 86850; 86900; 86901; P9016; Q5105; S0028

== ENCOUNTER 2020-03-12 19:41 | Inpatient (IN) | payer OTHER ==
[2020-03-12] MEDS ORDERED: traMADol HCl 50 MG TAB PO PRN (20:44)
[2020-03-12] MEDS ORDERED: ZINC OXIDE 20% TOP PRN (20:46)
[2020-03-12] MEDS ORDERED: Bisacodyl 10 MG SUPP PR PRN (20:47)
[2020-03-12] MEDS ORDERED: Promethazine HCl 25 MG/ML VIAL IM PRN (20:51)
[2020-03-12] MEDS ORDERED: Boudreaux's Butt Paste 60 GM TUBE TOP PRN (20:52)
[2020-03-12] MEDS: Gabapentin 100 MG CAP PO SCH (21:37)
[2020-03-12] MEDS: HYDROcodone/Acetaminophen 5/325 mg Tablet PO PRN (21:38)
[2020-03-13] MEDS: Acetaminophen 325 MG TAB PO PRN (02:07)
[2020-03-13] MEDS: HYDROcodone/Acetaminophen 5/325 mg Tablet PO PRN ×4 (04:20→20:39)
[2020-03-13 05:46] LABS: Band 10 % (5-11); Eosinophils 2 % (0-10); Hemoglobin 8.3 g/dL (14.0-18.0); Hypochromia SLIGHT = 6-15 cells (100X) (0-5/hpf); Lymphocytes 21 % (21-51); MDiff Complete? YES; Mean Corpuscular HGB CONC 31.3 g/dL (32.0-36.0); Mean Corpuscular Hemoglobin 28.4 pg (27.0-31.0); Mean Corpuscular Volume 90.7 fL (78.0-98.0); Mean Platelet Volume 7.8 fL (7.4-10.4); Monocytes 10 % (0-10); Neutrophil 57 % (42-75); Nucleated RBC 1 % (0); Platelet Count 152 thou/uL (130-400); Platelet Morphology Comment Appears Adequate; RBC Distribution Width 15.3 % (11.5-14.5); Red Blood Cell (RBC) Count 2.92 mill/uL (4.70-6.10)
[2020-03-13 05:47] LABS: Anion Gap 16 mmol/L (10-20); BUN (Urea Nitrogen) 27 mg/dL (8.4-25.7); Calc. Creatinine Clearance 38 mL/min (70-130); Calcium 8.7 mg/dL (7.8-10.44); Carbon Dioxide 23 mmol/L (23-31); Chloride 101 mmol/L (98-107); Estimated GFR-MDRD 71; Glucose 94 mg/dL (83-110); Potassium 4.8 mmol/L (3.5-5.1); Sodium 135 mmol/L (136-145)
[2020-03-13] MEDS: Ferrous Sulfate 325 MG TAB PO SCH ×2 (08:04→17:10)
[2020-03-13] MEDS: Folic Acid 1 MG TAB PO SCH (09:04)
[2020-03-13] MEDS: Gabapentin 100 MG CAP PO SCH ×2 (09:04→20:40)
[2020-03-13] MEDS ORDERED: Loperamide HCl 2 MG CAP PO PRN (09:26)
[2020-03-13] MEDS ORDERED: Ondansetron ODT 4 MG TAB PO PRN (09:26)
[2020-03-13] MEDS: EPOETIN ALFA-EPBX (ESRD) 10,000 UNIT/ML VIAL SC SCH (13:22)
[2020-03-13] MEDS: Melatonin 3 MG TAB PO PRN (20:40)
[2020-03-14] MEDS: HYDROcodone/Acetaminophen 5/325 mg Tablet PO PRN ×4 (04:52→22:40)
[2020-03-14 06:15] LABS: Anion Gap 17 mmol/L (10-20); BUN (Urea Nitrogen) 27 mg/dL (8.4-25.7); Band 6 % (5-11); Calc. Creatinine Clearance 37 mL/min (70-130); Calcium 8.2 mg/dL (7.8-10.44); Carbon Dioxide 22 mmol/L (23-31); Chloride 101 mmol/L (98-107); Estimated GFR-MDRD 69; Glucose 119 mg/dL (83-110); Hemoglobin 8.2 g/dL (14.0-18.0); Hypochromia SLIGHT = 6-15 cells (100X) (0-5/hpf); Lymphocytes 30 % (21-51); MDiff Complete? YES; Mean Corpuscular HGB CONC 31.4 g/dL (32.0-36.0); Mean Corpuscular Hemoglobin 28.2 pg (27.0-31.0); Mean Corpuscular Volume 89.9 fL (78.0-98.0); Mean Platelet Volume 7.6 fL (7.4-10.4); Microcytosis SLIGHT = 6-15 cells (100X) (0-5/hpf); Monocytes 12 % (0-10); Neutrophil 52 % (42-75); Nucleated RBC 1 % (0); Ovalocytes SLIGHT = 2-5 cells (100X) (0-1/hpf); Platelet Count 128 thou/uL (130-400); Platelet Morphology Comment Appears Adequate; Potassium 4.3 mmol/L (3.5-5.1); RBC Distribution Width 15.4 % (11.5-14.5); Sodium 136 mmol/L (136-145); Tear Drops SLIGHT = 2-5 cells (100X) (0-1/hpf); White Blood Cell (WBC) Count 10.2 thou/uL (4.8-10.8)
[2020-03-14] MEDS ORDERED: Melatonin 3 MG TAB PO PRN (07:53)
[2020-03-14] MEDS ORDERED: traMADol HCl 50 MG TAB PO PRN (07:53)
[2020-03-14] MEDS ORDERED: HYDROcodone/Acetaminophen 5/325 mg Tablet PO PRN ×2 (07:53)
[2020-03-14] MEDS ORDERED: Promethazine HCl 25 MG/ML VIAL IM PRN (07:53)
[2020-03-14] MEDS ORDERED: Bisacodyl 10 MG SUPP PR PRN (07:53)
[2020-03-14] MEDS ORDERED: Ferrous Sulfate 325 MG TAB PO SCH (08:00)
[2020-03-14] MEDS ORDERED: ZINC OXIDE 20% TOP PRN (08:05)
[2020-03-14] MEDS: Folic Acid 1 MG TAB PO SCH (08:10)
[2020-03-14] MEDS: Gabapentin 100 MG CAP PO SCH (08:10)
[2020-03-14] MEDS: Ferrous Sulfate 325 MG TAB PO SCH ×2 (08:10→17:58)
[2020-03-14] MEDS ORDERED: EPOETIN ALFA EPBX SC SCH (09:00)
[2020-03-14] MEDS ORDERED: Gabapentin 100 MG CAP PO SCH (09:00)
[2020-03-14] MEDS ORDERED: Folic Acid 1 MG TAB PO SCH (09:00)
--- NOTE | 2020-03-14 09:20 | PDOC.BPN ---
- Brief Progress Note Encounter Date: 03/14/20 Encounter Time: 09:14 SUBJECTIVE: Pt c/o phantom limb pain on R, not well controlled with current Gabapentin. Also Pressure ulcer "tickles" but is not painful. ROS: denies fever, chills, cough, congestion, N/V/D OBJECTIVE: Vital Signs - Most Recent Temp Pulse Resp BP Pulse Ox 97.9 F 90 21 H 126/60 96 03/14/20 08:00 03/14/20 08:00 03/14/20 08:00 03/14/20 08:00 03/14/20 08:00 Laboratory Results - last 24 hr 03/14/20 05:52: WBC 10.2, RBC 2.90 L, Hgb 8.2 L, Hct 26.1 L, MCV 89.9, MCH 28.2, MCHC 31.4 L, RDW 15.4 H, Plt Count 128 L, MPV 7.6, Neutrophils % (Manual) 52, Band Neuts % (Manual) 6, Lymphocytes % (Manual) 30, Monocytes % (Manual) 12 H, Nucleated RBCs # (Man) 1 H, Hypochromia SLIGHT = 6-15 cells, Plt Morphology Comment Appears Adequate, Microcytosis SLIGHT = 6-15 cells, Tear Drop Cells SLIGHT = 2-5 cells, Ovalocytes SLIGHT = 2-5 cells 03/14/20 05:52: Sodium 136, Potassium 4.3, Chloride 101, Carbon Dioxide 22 L, Anion Gap 17, BUN 27 H, Creatinine 1.22, Estimated GFR (MDRD) 69, Glucose 119 H, Calcium 8.2 Physical Exam: Gen: Well-appearing, frail 79 yo M. NAD. uncomfortable from PLP. Resp: CTAB, no wheezes CV: RRR, no murmurs. GI: soft nontender MSK: R AKA site c/d/i. ASSESSMENT: 1. 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 Phantom Limb pain 3. CKD II 4. HTN PLAN -BP well controlled -Increase Gabapentin to 300 BID. consider increasing freq if not helping. -Remove incisions today -Monitor labs -PT/OT -Continue discharge planning -Continue GI/DVT prophy
--- NOTE | 2020-03-14 10:03 | HP ---
HISTORY OF PRESENT ILLNESS: The patient is a very pleasant 79-year-old male with a significant past medical history of myelofibrosis, benign prostatic hypertrophy, hypertension, chronic kidney disease, who is originally admitted to [facility] in [place] for urinary tract infection and was found to have high-grade small bowel obstruction requiring exploratory laparotomy and lysis of adhesions. The patient also developed postoperative complications of hypoxic respiratory failure requiring extended ventilator management. He eventually recovered from this, however, needed to be on dialysis with Dr. Fred King, Monday, , and Monday. The patient recovered well and was requiring extended physical therapy and was transferred here to [facility]. He was originally admitted on February 20 here at [facility]. However, on February 27, there was a concern for arterial occlusion and the patient was sent to the ER in [place]. In the ER, he underwent a CTA with runoff and showed severe peripheral vascular disease and was admitted for a Vascular Surgery consult. Vascular Surgery saw the patient and performed a right [id number] amputation due to his peripheral vascular disease. The patient recovered well from the surgery and again was requiring further PT and OT Services and was transferred back here to [facility] for continued services. During his last hospital stay for the amputation, the patient was found to have urinary tract infection with E coli and Morganella and he was treated with IV antibiotics. Infectious Disease Service was consulted and eventually antibiotics were discontinued by the Primary Service and Infectious Disease. On presentation here to [facility], the patient is doing well, in no acute distress; however, he does complain about his right foot hurting, this is thought to be phantom limb pain as the patient has an AKA on the right. The patient was started on gabapentin for this, which seems to help with the pain. The patient is doing well with no signs of fluid overload. He was taken of dialysis at the last hospital stay and there is no indication for continued dialysis at this time. REVIEW OF SYSTEMS: GENERAL: Denies any fever or chills. RESPIRATORY: Denies any cough or congestion. CARDIO: Denies any chest pain or shortness of breath. ABDOMEN: Denies any nausea or vomiting. EXTREMITIES: Reports phantom limb pain on the right with perceived foot pain. PAST MEDICAL HISTORY: Remarkable for myelofibrosis, benign prostatic hypertrophy, hypertension, chronic kidney disease, peripheral vascular disease. PAST SURGICAL HISTORY: Right femoral artery bypass, now with a right fnden-ewh-haap amputation. FAMILY MEDICAL HISTORY: Noncontributory to current stay. SOCIAL HISTORY: He is nonsmoker, nondrinker. He obtains his care at the [facility] in [place]. MEDICATIONS: 1. Gabapentin 100 p.o. b.i.d. 2. Zinc oxide for pressure ulcer. 3. Bisacodyl 5 mg p.r. daily. 4. Epoetin alonzo 75,000 units subcu every 7 days, last given today on 03/13. 5. Ferrous sulfate 325 mg p.o. b.i.d. 6. Patterson 5 one tablet p.o. q.4 p.r.n. 7. Tramadol 50 mg p.o. q.6 p.r.n. 8. Melatonin 3 mg p.o. at bedtime p.r.n. 9. Promethazine 25 mg q.6 p.r.n. 10. Folate acid 1 mg p.o. daily. VITAL SIGNS: On admission, temperature 97.8, pulse 92, respiratory rate 22, O2 saturation is 95 on room air, blood pressure 130/60. LABORATORY DATA: White count 11.0, hemoglobin and hematocrit are 8.3 and 26.5, platelets 152. Sodium 135, potassium 4.8, chloride 101, carbon dioxide 23, BUN 27, creatinine 1.19, GFR 71, glucose 94, calcium 8.7. PHYSICAL EXAM: General: well-appearing, NAD HENT: no rhinnorhea, or pharyngeal erythema CV: RRR, no murmurs Resp: CTAB, no wheezes Ext: R AKA. incision c/d/i. no erythema. No edema on L leg. ASSESSMENT: 1. Status post right fycja-kii-zfzw amputation, requiring PT and OT Services for new amputation. 2. Hypertension. 3. Chronic kidney disease. 4. Status post small bowel obstruction with laparotomy for lysis of adhesions. 5. Benign prostatic hypertrophy. 6. Peripheral vascular disease, stable on Plavix. PLAN: 1. Continue PT and OT Services. 2. The patient no longer requires dialysis. We will continue to follow with BMPs. 3. Started gabapentin, we will increase as needed for phantom limb pain. 4. Stress ulcer and DVT prophylaxis. 5. Discharge planning for home health with PT and OT services. Job ID: [id number] RISHABH
[2020-03-14] MEDS: Gabapentin 300 MG CAP PO SCH (21:10)
[2020-03-14] MEDS: Acetaminophen 325 MG TAB PO PRN (21:10)
[2020-03-14] MEDS: Melatonin 3 MG TAB PO PRN (21:10)
[2020-03-15] MEDS: HYDROcodone/Acetaminophen 5/325 mg Tablet PO PRN ×3 (05:30→21:47)
[2020-03-15] MEDS: Gabapentin 300 MG CAP PO SCH ×2 (09:07→21:01)
[2020-03-15] MEDS: Folic Acid 1 MG TAB PO SCH (09:07)
[2020-03-15] MEDS: Ferrous Sulfate 325 MG TAB PO SCH ×2 (09:07→16:51)
[2020-03-15] MEDS: Melatonin 3 MG TAB PO PRN (21:02)
[2020-03-16] MEDS: Gabapentin 300 MG CAP PO SCH ×2 (09:04→21:00)
[2020-03-16] MEDS: Ferrous Sulfate 325 MG TAB PO SCH ×2 (09:05→18:02)
[2020-03-16] MEDS: Folic Acid 1 MG TAB PO SCH (09:07)
[2020-03-16] MEDS: HYDROcodone/Acetaminophen 5/325 mg Tablet PO PRN ×2 (12:53→18:27)
[2020-03-16] MEDS: Melatonin 3 MG TAB PO PRN (21:00)
[2020-03-17] MEDS: Gabapentin 300 MG CAP PO SCH ×2 (08:47→20:58)
[2020-03-17] MEDS: Folic Acid 1 MG TAB PO SCH (08:47)
[2020-03-17] MEDS: Acetaminophen 325 MG TAB PO PRN (08:48)
[2020-03-17] MEDS: Ferrous Sulfate 325 MG TAB PO SCH ×2 (08:48→17:13)
[2020-03-17] MEDS: HYDROcodone/Acetaminophen 5/325 mg Tablet PO PRN ×2 (08:48→20:58)
[2020-03-17] MEDS ORDERED: Ondansetron ODT 4 MG TAB SL PRN (11:45)
--- NOTE | 2020-03-17 13:51 | PDOC.BPN ---
- Brief Progress Note Encounter Date: 03/17/20 Encounter Time: 13:32 SUBJECTIVE: Pt c/o phantom limb pain on R. Pain better controlled with Gabapentin. ROS: denies fever, chills, cough, congestion, N/V/D OBJECTIVE: Vital Signs - Most Recent Temp Pulse Resp BP Pulse Ox 97.6 F 88 18 124/66 98 03/17/20 08:00 03/17/20 08:00 03/17/20 08:00 03/17/20 08:00 03/17/20 08:00 Physical Exam: Gen: Well-appearing, frail 79 yo M. NAD. uncomfortable from PLP. Resp: CTAB, no wheezes CV: RRR, no murmurs. GI: soft nontender MSK: R AKA site c/d/i. ASSESSMENT: 1. 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 Phantom Limb pain 3. CKD II 4. HTN PLAN -BP well controlled -Increase Gabapentin to 300 BID. consider increasing freq if not helping. -Remove incisions today -Monitor labs -PT/OT -Continue discharge planning -Continue GI/DVT prophy
[2020-03-17] MEDS: Melatonin 3 MG TAB PO PRN (20:58)
[2020-03-18] MEDS: HYDROcodone/Acetaminophen 5/325 mg Tablet PO PRN ×2 (08:27→20:51)
[2020-03-18] MEDS: Ferrous Sulfate 325 MG TAB PO SCH ×2 (08:27→17:22)
[2020-03-18] MEDS: Gabapentin 300 MG CAP PO SCH ×2 (08:27→20:51)
[2020-03-18] MEDS: Folic Acid 1 MG TAB PO SCH (08:27)
[2020-03-18] MEDS: Melatonin 3 MG TAB PO PRN (20:51)
[2020-03-19] MEDS: Gabapentin 300 MG CAP PO SCH ×2 (08:29→20:50)
[2020-03-19] MEDS: Folic Acid 1 MG TAB PO SCH (08:29)
[2020-03-19] MEDS: Ferrous Sulfate 325 MG TAB PO SCH ×2 (08:29→17:26)
[2020-03-19] MEDS: HYDROcodone/Acetaminophen 5/325 mg Tablet PO PRN ×3 (08:30→23:21)
[2020-03-19] MEDS: Melatonin 3 MG TAB PO PRN (23:22)
[2020-03-20 05:52] LABS: Anion Gap 15 mmol/L (10-20); BUN (Urea Nitrogen) 45 mg/dL (8.4-25.7); Calc. Creatinine Clearance 38 mL/min (70-130); Carbon Dioxide 24 mmol/L (23-31); Chloride 106 mmol/L (98-107); Estimated GFR-MDRD 70; Glucose 90 mg/dL (83-110); Potassium 4.7 mmol/L (3.5-5.1); Sodium 140 mmol/L (136-145)
[2020-03-20 06:03] LABS: Band 22 % (5-11); Basophilic Stippling SLIGHT = 1-2 cells (100X) (None Seen); Eosinophils 1 % (0-10); Hemoglobin 7.5 g/dL (14.0-18.0); Hypochromia MODERATE=16-30 cells (100X) (0-5/hpf); Lymphocytes 24 % (21-51); MDiff Complete? YES; Mean Corpuscular HGB CONC 31.4 g/dL (32.0-36.0); Mean Corpuscular Hemoglobin 28.6 pg (27.0-31.0); Mean Corpuscular Volume 91.4 fL (78.0-98.0); Mean Platelet Volume 7.8 fL (7.4-10.4); Metamyelocyte 9 % (0-0); Monocytes 4 % (0-10); Myelocyte 3 % (0-0); Neutrophil 37 % (42-75); Nucleated RBC 5 % (0); Ovalocytes SLIGHT = 2-5 cells (100X) (0-1/hpf); Platelet Count 110 thou/uL (130-400); Platelet Morphology Comment Appears Decreased; Polychromasia SLIGHT = 2-3 cells (100X) (0-2/hpf); RBC Distribution Width 16.1 % (11.5-14.5); Red Blood Cell (RBC) Count 2.63 mill/uL (4.70-6.10); Tear Drops SLIGHT = 2-5 cells (100X) (0-1/hpf); White Blood Cell (WBC) Count 10.5 thou/uL (4.8-10.8)
[2020-03-20] MEDS: Ferrous Sulfate 325 MG TAB PO SCH ×2 (08:46→16:45)
[2020-03-20] MEDS: Gabapentin 300 MG CAP PO SCH ×2 (08:46→21:07)
[2020-03-20] MEDS: Folic Acid 1 MG TAB PO SCH (08:46)
[2020-03-20] MEDS: HYDROcodone/Acetaminophen 5/325 mg Tablet PO PRN ×3 (09:58→21:07)
[2020-03-20] MEDS ORDERED: Fluconazole 100 MG TAB PO SCH (11:00)
--- NOTE | 2020-03-20 11:01 | PDOC.BPN ---
- Brief Progress Note Encounter Date: 03/20/20 Encounter Time: 10:59 SUBJECTIVE: Phantom limb pain is improving. ROS: denies fever, chills, cough, congestion, N/V/D OBJECTIVE: Active Orders - 24 Hr Vital Signs - Most Recent Temp Pulse Resp BP Pulse Ox 96.2 F L 98 15 135/63 100 03/20/20 08:00 03/20/20 08:00 03/20/20 08:00 03/20/20 08:00 03/20/20 08:00 Physical Exam: Gen: Well-appearing, frail 79 yo M. NAD. uncomfortable from PLP. Resp: CTAB, no wheezes CV: RRR, no murmurs. GI: soft nontender MSK: R AKA site c/d/i. : yeast infection in groin. ASSESSMENT: 1. 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 Phantom Limb pain 3. CKD II 4. HTN 5. Yeast PLAN -BP well controlled -Increase Gabapentin to 300 BID. consider increasing freq if not helping. -Remove incisions today -Monitor labs -PT/OT -Continue discharge planning -Continue GI/DVT prophy -Diflucan today. continue to monitor.
[2020-03-20] MEDS: EPOETIN ALFA-EPBX (ESRD) 10,000 UNIT/ML VIAL SC SCH (11:55)
[2020-03-20] MEDS: Melatonin 3 MG TAB PO PRN (21:07)
[2020-03-21] MEDS: Ferrous Sulfate 325 MG TAB PO SCH ×2 (08:55→16:18)
[2020-03-21] MEDS: Gabapentin 300 MG CAP PO SCH ×2 (08:55→20:37)
[2020-03-21] MEDS: Folic Acid 1 MG TAB PO SCH (08:55)
[2020-03-21] MEDS: HYDROcodone/Acetaminophen 5/325 mg Tablet PO PRN ×2 (08:57→20:36)
--- NOTE | 2020-03-21 16:24 | PRG ---
DATE OF SERVICE: 03/21/2020 SUBJECTIVE: Mr. Coulter is resting in bed. He denies any complaints. OBJECTIVE: VITAL SIGNS: He is afebrile, heart rate 98, respirations 20, oxygen saturation 99% on room air, blood pressure 124/58. CARDIOVASCULAR SYSTEM: S1 and S2 plus. RESPIRATORY SYSTEM: Normal vesicular breath sounds. ABDOMEN: Soft, nontender. Bowel sounds heard in all quadrants. EXTREMITIES: Without cyanosis or clubbing. Right AKA. : Austin catheter is in place. IMPRESSION: 1. Benign prostatic hypertrophy. 2. Hypertension. 3. Peripheral vascular disease, status post right above-knee amputation. 4. Chronic kidney disease. 5. Myelofibrosis. PLAN: 1. Continue current medications. 2. Nutritional support with heart-healthy diet. 3. DVT prophylaxis. 4. Decubitus precautions. 5. Stress ulcer prophylaxis. 6. We will discuss with OT about getting him on in preparation for probable prosthesis. 7. Routine laboratory values. Job ID: [id number]
[2020-03-21] MEDS: Melatonin 3 MG TAB PO PRN (20:37)
[2020-03-22] MEDS: HYDROcodone/Acetaminophen 5/325 mg Tablet PO PRN ×2 (05:51→21:01)
[2020-03-22] MEDS: Ferrous Sulfate 325 MG TAB PO SCH ×2 (08:41→15:58)
[2020-03-22] MEDS: Folic Acid 1 MG TAB PO SCH (08:41)
[2020-03-22] MEDS: Gabapentin 300 MG CAP PO SCH ×2 (08:41→21:01)
[2020-03-22] MEDS: Acetaminophen 325 MG TAB PO PRN (15:47)
--- NOTE | 2020-03-22 16:44 | PRG ---
DATE OF SERVICE: 03/22/2020 SUBJECTIVE: Mr. Coulter is resting in bed. His sister is in the room. He is happy with his progress. Stump is healing nicely. OBJECTIVE: VITAL SIGNS: He is afebrile, heart rate 100, respirations 22, oxygen saturation 96% on room air, and blood pressure 114/74. CARDIOVASCULAR SYSTEM: S1 and S2 plus. RESPIRATORY SYSTEM: Normal vesicular breath sounds. ABDOMEN: Soft and nontender. Bowel sounds heard in all quadrants. EXTREMITIES: Without cyanosis or clubbing. Right AKA is healing well. CENTRAL NERVOUS SYSTEM: Generalized weakness. IMPRESSION: 1. Benign prostatic hyperplasia. 2. Hypertension. 3. Peripheral vascular disease, status post right above-knee amputation. 4. Chronic kidney disease. 5. Myelofibrosis. PLAN: 1. Continue current medications. 2. Nutritional support with heart-healthy diet. 3. DVT prophylaxis. 4. Decubitus precautions. 5. Stump care. 6. Occupational therapy should be able to start using his stump die reamer in preparation for the prosthesis. 7. Dr. Richi gao [facility]. Job ID: [id number]
[2020-03-23] MEDS: Folic Acid 1 MG TAB PO SCH (08:35)
[2020-03-23] MEDS: Ferrous Sulfate 325 MG TAB PO SCH ×2 (08:35→17:56)
[2020-03-23] MEDS: Gabapentin 300 MG CAP PO SCH ×2 (08:35→20:43)
[2020-03-23] MEDS: HYDROcodone/Acetaminophen 5/325 mg Tablet PO PRN ×2 (08:37→20:43)
[2020-03-24 05:51] LABS: Anion Gap 16 mmol/L (10-20); BUN (Urea Nitrogen) 54 mg/dL (8.4-25.7); Calc. Creatinine Clearance 36 mL/min (70-130); Calcium 8.9 mg/dL (7.8-10.44); Carbon Dioxide 22 mmol/L (23-31); Chloride 106 mmol/L (98-107); Estimated GFR-MDRD 70; Glucose 92 mg/dL (83-110); Potassium 4.5 mmol/L (3.5-5.1); Sodium 139 mmol/L (136-145)
[2020-03-24 05:56] LABS: Anisocytosis SLIGHT = 6-15 cells (100X) (0-5/hpf); Band 12 % (5-11); Eosinophils 2 % (0-10); Hemoglobin 7.5 g/dL (14.0-18.0); Hypochromia SLIGHT = 6-15 cells (100X) (0-5/hpf); Lymphocytes 37 % (21-51); MDiff Complete? YES; Mean Corpuscular HGB CONC 31.5 g/dL (32.0-36.0); Mean Corpuscular Hemoglobin 28.4 pg (27.0-31.0); Mean Platelet Volume 8.9 fL (7.4-10.4); Metamyelocyte 4 % (0-0); Monocytes 5 % (0-10); Neutrophil 40 % (42-75); Nucleated RBC 2 % (0); Platelet Count 120 thou/uL (130-400); Platelet Morphology Comment Appears Decreased; Polychromasia SLIGHT = 2-3 cells (100X) (0-2/hpf); RBC Distribution Width 16.7 % (11.5-14.5); Red Blood Cell (RBC) Count 2.63 mill/uL (4.70-6.10); White Blood Cell (WBC) Count 11.2 thou/uL (4.8-10.8)
[2020-03-24] MEDS: Folic Acid 1 MG TAB PO SCH (08:50)
[2020-03-24] MEDS: Ferrous Sulfate 325 MG TAB PO SCH ×2 (08:50→16:52)
[2020-03-24] MEDS: Gabapentin 300 MG CAP PO SCH ×2 (08:50→21:34)
[2020-03-24] MEDS: HYDROcodone/Acetaminophen 5/325 mg Tablet PO PRN ×3 (08:51→21:34)
--- NOTE | 2020-03-24 12:42 | PDOC.BPN ---
- Brief Progress Note Encounter Date: 03/24/20 Encounter Time: 12:40 SUBJECTIVE: doing well. feels like his body is getting used to the AKA now. ROS: denies fever, chills, cough, congestion, N/V/D OBJECTIVE: Vital Signs - Most Recent Temp Pulse Resp BP Pulse Ox 98.9 F 96 20 120/60 96 03/24/20 07:32 03/24/20 07:32 03/24/20 07:32 03/24/20 07:32 03/24/20 07:32 Physical Exam: Gen: Well-appearing, frail 79 yo M. NAD. uncomfortable from PLP. Resp: CTAB, no wheezes CV: RRR, no murmurs. GI: soft nontender MSK: R AKA site c/d/i. ASSESSMENT: 1. 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 Phantom Limb pain, improving 3. CKD II 4. HTN 5. Yeast, improving PLAN -BP well controlled -Cont Gabapentin to 300 BID. consider increasing freq if not helping. -Monitor labs -PT/OT -Continue discharge planning -Continue GI/DVT prophy
[2020-03-24] MEDS: Melatonin 3 MG TAB PO PRN (21:34)
[2020-03-25] MEDS: Folic Acid 1 MG TAB PO SCH (08:26)
[2020-03-25] MEDS: Ferrous Sulfate 325 MG TAB PO SCH ×2 (08:26→17:22)
[2020-03-25] MEDS: Gabapentin 300 MG CAP PO SCH ×2 (08:26→20:47)
--- NOTE | 2020-03-25 12:56 | PDOC.BPN ---
- Brief Progress Note Encounter Date: 03/25/20 Encounter Time: 12:55 SUBJECTIVE: doing well. Has low motivation to work with PT/OT. they are going to have sister come during next session for motivation. ROS: denies fever, chills, cough, congestion, N/V/D OBJECTIVE: Vital Signs - Most Recent Temp Pulse Resp BP Pulse Ox 98.9 F 96 20 120/60 96 03/24/20 07:32 03/24/20 07:32 03/24/20 07:32 03/24/20 07:32 03/24/20 07:32 Physical Exam: Gen: Well-appearing, frail 79 yo M. NAD. uncomfortable from PLP. Resp: CTAB, no wheezes CV: RRR, no murmurs. GI: soft nontender MSK: R AKA site c/d/i. ASSESSMENT: 1. 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 Phantom Limb pain, improving 3. CKD II 4. HTN 5. Yeast, improving PLAN -BP well controlled -Cont Gabapentin 300 BID. consider increasing freq if not helping. -Monitor labs -PT/OT -Continue GI/DVT prophy -PT/OT recommend SNF placement vs home with HH. Pt still requiring extensive therapy. PT/OT are working to determine an appropriate d/c date. -Consulted CM for SNF vs HH
[2020-03-25] MEDS: Melatonin 3 MG TAB PO PRN (20:47)
[2020-03-25] MEDS: HYDROcodone/Acetaminophen 5/325 mg Tablet PO PRN (20:47)
[2020-03-26] MEDS: Ferrous Sulfate 325 MG TAB PO SCH ×2 (08:58→16:46)
[2020-03-26] MEDS: Folic Acid 1 MG TAB PO SCH (08:58)
[2020-03-26] MEDS: Gabapentin 300 MG CAP PO SCH ×2 (08:59→19:45)
[2020-03-26] MEDS: Acetaminophen 325 MG TAB PO PRN (13:05)
[2020-03-26] MEDS: HYDROcodone/Acetaminophen 5/325 mg Tablet PO PRN ×2 (19:43→19:45)
[2020-03-27] MEDS: HYDROcodone/Acetaminophen 5/325 mg Tablet PO PRN ×3 (01:21→20:00)
[2020-03-27] MEDS: Folic Acid 1 MG TAB PO SCH (08:04)
[2020-03-27] MEDS: Ferrous Sulfate 325 MG TAB PO SCH ×2 (08:04→17:14)
[2020-03-27] MEDS: Gabapentin 300 MG CAP PO SCH ×2 (08:04→20:01)
[2020-03-27] MEDS: EPOETIN ALFA-EPBX (ESRD) 10,000 UNIT/ML VIAL SC SCH (12:21)
[2020-03-28 06:32] LABS: Anion Gap 17 mmol/L (10-20); BUN (Urea Nitrogen) 63 mg/dL (8.4-25.7); Calc. Creatinine Clearance 31 mL/min (70-130); Calcium 8.7 mg/dL (7.8-10.44); Carbon Dioxide 22 mmol/L (23-31); Chloride 105 mmol/L (98-107); Estimated GFR-MDRD 61; Glucose 105 mg/dL (83-110); Potassium 4.7 mmol/L (3.5-5.1); Sodium 139 mmol/L (136-145)
[2020-03-28 06:42] LABS: Band 8 % (5-11); Eosinophils 6 % (0-10); Hypochromia SLIGHT = 6-15 cells (100X) (0-5/hpf); Lymphocytes 4 % (21-51); MDiff Complete? YES; Mean Corpuscular HGB CONC 32.3 g/dL (32.0-36.0); Mean Corpuscular Hemoglobin 29.3 pg (27.0-31.0); Mean Corpuscular Volume 90.7 fL (78.0-98.0); Mean Platelet Volume 9.3 fL (7.4-10.4); Metamyelocyte 4 % (0-0); Microcytosis SLIGHT = 6-15 cells (100X) (0-5/hpf); Monocytes 12 % (0-10); Neutrophil 66 % (42-75); Nucleated RBC 2 % (0); Platelet Count 157 thou/uL (130-400); Platelet Morphology Comment Appears Adequate; RBC Distribution Width 17.1 % (11.5-14.5); Red Blood Cell (RBC) Count 2.72 mill/uL (4.70-6.10); White Blood Cell (WBC) Count 13.6 thou/uL (4.8-10.8)
[2020-03-28] MEDS: Ferrous Sulfate 325 MG TAB PO SCH ×2 (08:16→17:10)
[2020-03-28] MEDS: Gabapentin 300 MG CAP PO SCH ×2 (08:16→20:51)
[2020-03-28] MEDS: Folic Acid 1 MG TAB PO SCH (08:16)
--- NOTE | 2020-03-28 08:33 | PDOC.BPN ---
- Brief Progress Note Encounter Date: 03/28/20 Encounter Time: 08:30 SUBJECTIVE: doing well. C/o constipation today. WBC up today. Denies productive cough, or congestion. Does report some blood in urine. ROS: denies fever, chills, cough, congestion, N/V/D OBJECTIVE: Vital Signs - Most Recent Temp Pulse Resp BP Pulse Ox 98.0 F 96 18 121/61 99 03/28/20 07:52 03/28/20 07:52 03/28/20 07:52 03/28/20 07:52 03/28/20 07:52 Laboratory Results - last 24 hr 03/28/20 05:35: WBC 13.6 H, RBC 2.72 L, Hgb 8.0 L, Hct 24.7 L, MCV 90.7, MCH 29.3, MCHC 32.3, RDW 17.1 H, Plt Count 157, MPV 9.3, Neutrophils % (Manual) 66, Band Neuts % (Manual) 8, Lymphocytes % (Manual) 4 L, Monocytes % (Manual) 12 H, Eosinophils % (Manual) 6, Metamyelocytes % (Man) 4 H, Nucleated RBCs # (Man) 2 H, Hypochromia SLIGHT = 6-15 cells, Plt Morphology Comment Appears Adequate, Microcytosis SLIGHT = 6-15 cells 03/28/20 05:35: Sodium 139, Potassium 4.7, Chloride 105, Carbon Dioxide 22 L, Anion Gap 17, BUN 63 H, Creatinine 1.36 H, Estimated GFR (MDRD) 61, Glucose 105, Calcium 8.7 Physical Exam: Gen: Well-appearing, frail 79 yo M. NAD. uncomfortable from PLP. Resp: CTAB, no wheezes CV: RRR, no murmurs. GI: soft nontender MSK: R AKA site c/d/i. ASSESSMENT: 1. 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 Phantom Limb pain, improving 3. CKD II 4. HTN 5. Yeast, improving 6. constipation PLAN -BP well controlled -Cont Gabapentin 300 BID. consider increasing freq if not helping. -Monitor labs -PT/OT -Continue GI/DVT prophy -PT/OT recommend SNF placement vs home with HH. Pt still requiring extensive therapy. PT/OT are working to determine an appropriate d/c date. -Consulted CM for SNF vs HH -WBC increasing. Will get UA, UCx. repeat CBC in AM. -Added Colace PRN
--- NOTE | 2020-03-28 08:55 | RAD ---
RADIOGRAPH CHEST 1 VIEW: DATE: 03/28/2020 HISTORY: 80-year-old male with leukocytosis FINDINGS: There are no airspace densities, pulmonary edema, pneumothorax, or cardiomegaly. The lateral costophr enic angles are sharp. IMPRESSION: No acute cardiopulmonary findings.
[2020-03-28] MEDS: HYDROcodone/Acetaminophen 5/325 mg Tablet PO PRN ×3 (09:39→22:19)
[2020-03-28 12:58] LABS: Bilirubin Negative (Negative); Blood, Urine Trace (Negative); Glucose, Urine (Dipstick) Negative (Negative); Ketone, Urine Negative (Negative); Leukocyte Moderate (Negative); Nitrite Positive (Negative); Protein, Urine (Dipstick) > or equal to 300 mg/dL (Neg-Trace); Specific Gravity, Urine 1.015 (1.005-1.030); Urobilinogen 0.2 mg/dL (Less than 2); pH, Urine 8.5 (5.0-9.0)
[2020-03-28 13:11] LABS: Clarity Hazy (Clear)
[2020-03-28 13:21] LABS: Bacteria/HPF 4+ HPF (None Seen); RBC/HPF 0-3 HPF (0-3)
[2020-03-28] MEDS: Docusate 100 MG CAP PO PRN (17:10)
[2020-03-29] MEDS: HYDROcodone/Acetaminophen 5/325 mg Tablet PO PRN ×4 (05:15→23:52)
[2020-03-29 05:43] LABS: Hemoglobin 7.4 g/dL (14.0-18.0); MDiff Complete? YES; Mean Corpuscular HGB CONC 31.1 g/dL (32.0-36.0); Mean Corpuscular Hemoglobin 28.2 pg (27.0-31.0); Mean Corpuscular Volume 90.7 fL (78.0-98.0); Mean Platelet Volume 7.7 fL (7.4-10.4); Platelet Count 153 thou/uL (130-400); RBC Distribution Width 17.2 % (11.5-14.5); Red Blood Cell (RBC) Count 2.63 mill/uL (4.70-6.10)
[2020-03-29 05:44] LABS: Band 6 % (5-11); Eosinophils 4 % (0-10); Lymphocytes 26 % (21-51); Manual Diff?? YES; Monocytes 4 % (0-10); Neutrophil 60 % (42-75); Nucleated RBC 5 % (0)
[2020-03-29 06:38] VITALS: BMI 17.1
[2020-03-29] MEDS: Ferrous Sulfate 325 MG TAB PO SCH ×2 (08:44→16:54)
[2020-03-29] MEDS: Folic Acid 1 MG TAB PO SCH (08:45)
[2020-03-29] MEDS: Gabapentin 300 MG CAP PO SCH ×2 (08:45→20:33)
[2020-03-29] MEDS ORDERED: Ciprofloxacin 500 MG TAB PO SCH (09:00)
[2020-03-29] MEDS ORDERED: Sulfameth/Trimethoprim DS 800-160mg TAB PO SCH (09:00)
--- NOTE | 2020-03-29 10:18 | PRG ---
DATE OF SERVICE: 03/29/2020 SUBJECTIVE: The patient was found to have a UTI yesterday based on his urinalysis and white count continues to go up. He does complain of constipation as well. Denies any productive cough, congestion. Chest x-ray was negative yesterday. He does report some small blood in his urine. REVIEW OF SYSTEMS: Denies fever, chills, cough, congestion, nausea, vomiting, diarrhea, palpitations. OBJECTIVE: VITAL SIGNS: Today, temperature 97.2, pulse 93, respirations 18, O2 sats 96% on room air, blood pressure 128/60. GENERAL: Well-appearing 80-year-old male, in no acute distress, lying in bed comfortably. HEENT: Normocephalic, atraumatic. RESPIRATORY: Clear to auscultation bilaterally. No wheezes. CARDIOVASCULAR: Regular rate and rhythm. No murmurs, gallops, or rubs. GI: Soft, nontender in suprapubic area. No CVA tenderness. EXTREMITIES: No cyanosis, no clubbing. LABORATORY VALUES: WBC is 14.0, hemoglobin 7.4, hematocrit 23.9, platelets 153. Urine color yellow; clarity, hazy; pH 8.5; specific gravity 1.015; protein, greater than 300; glucose negative; ketones negative; blood trace; nitrate positive; bilirubin negative; urobilinogen 0.2; leukocyte esterase, moderate; RBCs 0 to 3; WBCs 11 to 20; squames 4 to 6; bacteria 4+. ASSESSMENT: 1. Status post right above knee amputation, requiring continued inpatient PT, OT. 2. Phantom limb pain, improving. 3. Chronic kidney disease 2. 4. Hypertension. 5. Yeast infection, improving. 6. Constipation. PLAN: 1. The patient has had a similar urinalysis at the last hospital stay in [place]. The patient was started on meropenem and Infectious Disease was consulted. At that time, Dr. Barry felt that this infection should not be treated and recommended discontinuing antibiotics. The patient does have a long history of prostatitis per the patient going back to the 1950s. I discussed IV antibiotics with the patient and he stated that he does not want IV because last visit they started the antibiotics and just stopped them, therefore he refused the IV. Based on his long history of prostatitis, I will start him on Cipro p.o. for this and then get a ID consult for tomorrow with Dr. Barry to determine best plan of care for his urinalysis. 2. Continue gabapentin 300 b.i.d. for phantom limb pain. Consider increasing frequency if is not helping. 3. BP well controlled. 4. Monitor labs. 5. Continue PT, OT. 6. Continue GI, DVT prophylaxis. 7. PT, OT recommended [facility] placement versus home with home health. The patient is still requiring extensive therapy. Case Management is working with his sister to determine discharge planning. 8. WBCs are increasing as mentioned above. We will consult Infectious Disease for best plan of care. Job ID: [id number]
[2020-03-29] MEDS ORDERED: Meropenem 1 GM in Sodium Chloride 0.9% 100 ML IVPB SCH (14:00)
[2020-03-29] MEDS: Docusate 100 MG CAP PO PRN (16:54)
[2020-03-29] MEDS: Ciprofloxacin 500 MG TAB PO SCH (20:34)
[2020-03-30] MEDS: HYDROcodone/Acetaminophen 5/325 mg Tablet PO PRN ×2 (05:36→21:05)
[2020-03-30] MEDS: Ciprofloxacin 500 MG TAB PO SCH ×2 (05:36→21:00)
[2020-03-30] MEDS: Gabapentin 300 MG CAP PO SCH ×2 (08:49→21:05)
[2020-03-30] MEDS: Folic Acid 1 MG TAB PO SCH (08:50)
[2020-03-30] MEDS: Ferrous Sulfate 325 MG TAB PO SCH ×2 (08:50→16:56)
[2020-03-30] MEDS: Acetaminophen 325 MG TAB PO PRN (15:17)
[2020-03-31] MEDS: Ciprofloxacin 500 MG TAB PO SCH ×2 (05:22→21:20)
[2020-03-31] MEDS: HYDROcodone/Acetaminophen 5/325 mg Tablet PO PRN ×2 (08:39→15:05)
[2020-03-31] MEDS: Gabapentin 300 MG CAP PO SCH ×2 (08:42→21:20)
[2020-03-31] MEDS: Ferrous Sulfate 325 MG TAB PO SCH ×2 (08:42→17:15)
[2020-03-31] MEDS: Folic Acid 1 MG TAB PO SCH (08:42)
[2020-03-31] MEDS ORDERED: HYDROcodone/Acetaminophen 5/325 mg Tablet PO PRN (12:33)
[2020-03-31] MEDS: Acetaminophen 325 MG TAB PO PRN (21:22)
[2020-04-01] MEDS: HYDROcodone/Acetaminophen 5/325 mg Tablet PO PRN ×3 (00:34→20:44)
[2020-04-01] MEDS: Ciprofloxacin 500 MG TAB PO SCH ×2 (05:47→20:43)
[2020-04-01 05:55] LABS: Anion Gap 16 mmol/L (10-20); BUN (Urea Nitrogen) 46 mg/dL (8.4-25.7); Calc. Creatinine Clearance 31 mL/min (70-130); Calcium 8.5 mg/dL (7.8-10.44); Carbon Dioxide 22 mmol/L (23-31); Chloride 106 mmol/L (98-107); Estimated GFR-MDRD 62; Glucose 94 mg/dL (83-110); Potassium 4.8 mmol/L (3.5-5.1); Sodium 139 mmol/L (136-145)
[2020-04-01 05:58] LABS: Anisocytosis MODERATE=16-30 cells (100X) (0-5/hpf); Band 17 % (5-11); Elliptocytes MODERATE= 6-15 cells (100X) (0-1/hpf); Eosinophils 2 % (0-10); Hemoglobin 7.3 g/dL (14.0-18.0); Hypochromia MODERATE=16-30 cells (100X) (0-5/hpf); Lymphocytes 18 % (21-51); MDiff Complete? YES; Mean Corpuscular HGB CONC 31.2 g/dL (32.0-36.0); Mean Corpuscular Hemoglobin 28.1 pg (27.0-31.0); Mean Corpuscular Volume 90.3 fL (78.0-98.0); Mean Platelet Volume 9.3 fL (7.4-10.4); Metamyelocyte 5 % (0-0); Monocytes 10 % (0-10); Neutrophil 46 % (42-75); Nucleated RBC 5 % (0); Platelet Count 172 thou/uL (130-400); Platelet Morphology Comment Appears Adequate; Poikilocytosis MODERATE=16-30 cells (100X) (0-5/hpf); RBC Distribution Width 17.4 % (11.5-14.5); Reactive Lymphocytes 2 % (0-10); Tear Drops SLIGHT = 2-5 cells (100X) (0-1/hpf); White Blood Cell (WBC) Count 12.6 thou/uL (4.8-10.8)
[2020-04-01] MEDS: Gabapentin 300 MG CAP PO SCH ×3 (10:01→20:46)
[2020-04-01] MEDS: Ferrous Sulfate 325 MG TAB PO SCH ×2 (10:01→17:33)
[2020-04-01] MEDS: Folic Acid 1 MG TAB PO SCH (10:04)
--- NOTE | 2020-04-01 13:36 | PRG ---
DATE OF SERVICE: 03/31/2020 SUBJECTIVE: The patient is an 80-year-old male, who was admitted status post right AKA wound. The patient is requiring continued inpatient PT and OT services. I spoke with Infectious Disease yesterday, who states that the patient's white count has a vast differential and is not necessarily due to an infection, because his white count differential is within normal limits and the patient is afebrile and showing no signs of infection. However, we will continue his Cipro for now as this maybe chronic prostatitis, which is within the differential. Overall, the patient is doing well. He is minimally cooperative with physical therapy, but he is having some sessions. The patient's niece is a director of casework department and we have been in contact with her in regard to discharge planning. The patient and patient's family desire him to be placed at [facility]. However, [facility] is out of the patient's insurance and the facility is not contracted with the [place]. Tomasa Raza is his niece and she is working with the [facility] to try and get him placement. We will follow up with her for that. REVIEW OF SYSTEMS: Denies any fever, chills, cough, congestion, nausea, vomiting, diarrhea, or palpitations. OBJECTIVE: VITAL SIGNS: Temperature 98.8, pulse 99, respiratory rate 20, O2 saturations 98 on room air, blood pressure 129/74. LABORATORY DATA: No new labs. ASSESSMENT: 1. Status post right above-knee amputation, requiring continued inpatient PT and OT. 2. Phantom limb pain, improving. 3. Chronic kidney disease 2. 4. Hypertension. 5. Yeast infection, resolved. 6. Constipation. PLAN: 1. At this time, we will continue ciprofloxacin for presumed prostatitis. 2. Continue gabapentin 300 b.i.d. for phantom limb pain. We will work to discontinue the patient's [place] as his pain complaints are more closely related to his phantom limb pain rather than somatic pain. We will continue to increase gabapentin as needed for phantom limb pain. 3. Blood pressure well controlled. 4. Monitor labs. 5. Continue PT, OT services. 6. Continue GI, DVT prophylaxis. 7. As stated in HPI, the patient's niece, Tomasa Raza is working with the [facility] to get the patient placed upon discharge. For now, we will continue PT/OT services until placement is determined. Job ID: [id number]
--- NOTE | 2020-04-01 14:35 | PRG ---
DATE OF SERVICE: 04/01/2020 SUBJECTIVE: The patient is an 80-year-old male, who is here for PT and OT services, status post right AKA. The patient is doing well and minimally cooperative with PT and OT. The patient continues to complain of right lower limb pain, which is related to his phantom limb pain. He complains of his right foot hurting. We are weaning narcotics for him and increasing his gabapentin to help with this phantom limb pain. REVIEW OF SYSTEMS: Pain as mentioned in HPI. Denies any fever, chills, cough, congestion, nausea, vomiting, diarrhea, or palpitations. OBJECTIVE: VITAL SIGNS: Temperature 98.3, pulse 96, respiratory rate 18, O2 saturations 98% on room air, blood pressure 129/59. GENERAL: Well-appearing, slightly thin 80-year-old male, in no acute distress. Status post right AKA. CV: Regular rate and rhythm. No murmurs, gallops, or rubs. RESPIRATORY: Clear to auscultation bilaterally. No wheezes. GI: Soft, nontender to palpation. Bowel sounds present in all 4 quadrants. EXTREMITIES: Right AKA seen with healing incision clean, dry, and intact. LABORATORY VALUES: WBC is 12.6, H and H 7.3 and 23.4, platelets 172. Sodium 139, potassium 4.8, chloride 106, carbon dioxide 22, BUN 46, creatinine 1.34, GFR 62, glucose 94, calcium 8.5. ASSESSMENT: 1. Status post right above-knee amputation, requiring continued inpatient PT and OT services. 2. Phantom limb pain, stable. 3. Chronic kidney disease 2. 4. Hypertension. 5. Yeast infection, resolved. 6. Constipation. PLAN: 1. We will continue to wean the patient off narcotics and increase his gabapentin, which is a more applicable treatment for phantom limb pain. 2. BP well controlled. 3. Monitor labs. 4. Continue PT, OT services. 5. Continue GI, DVT prophylaxis. 6. We will follow up with the patient's niece in terms of his discharge planning. [facility] for [facility] after patient is discharged. For now, we will continue PT and OT working with the patient. Job ID: [id number]
[2020-04-02] MEDS: HYDROcodone/Acetaminophen 5/325 mg Tablet PO PRN (05:06)
[2020-04-02] MEDS: Ciprofloxacin 500 MG TAB PO SCH (05:07)
[2020-04-02] MEDS: Ferrous Sulfate 325 MG TAB PO SCH ×2 (08:48→17:14)
[2020-04-02] MEDS: Folic Acid 1 MG TAB PO SCH (08:49)
[2020-04-02] MEDS: Gabapentin 300 MG CAP PO SCH ×4 (08:49→20:29)
[2020-04-02] MEDS ORDERED: Iopamidol 370 76% 100 ML VIAL ONE (09:00)
[2020-04-02] MEDS ORDERED: Dicyclomine 10 MG CAP PO PRN (10:40)
--- NOTE | 2020-04-02 10:49 | RAD ---
Radiograph abdomen one view: 04/02/2020 10:12 AM HISTORY: 80-year-old male follow-up small bowel obstruction. COMPARISON: Small bowel series of 02/05/2020 FINDINGS: There continues to be multiple dilated small bowel loops, although this has slightly improved. Modera te amount of stool throughout nondilated colon. No evidence of organomegaly. No residual enteric contrast material. IMPRESSION: Abnormal bowel gas pattern: Dilated small bowel loops diffusely, although this has slightly improved.
[2020-04-02] MEDS: Ondansetron ODT 4 MG TAB PO PRN ×2 (10:58→23:32)
[2020-04-02] MEDS: Acetaminophen 325 MG TAB PO PRN (15:21)
[2020-04-02 15:24] LABS: Anion Gap 22 mmol/L (10-20); BUN (Urea Nitrogen) 53 mg/dL (8.4-25.7); Calc. Creatinine Clearance 25 mL/min (70-130); Calcium 9.6 mg/dL (7.8-10.44); Carbon Dioxide 22 mmol/L (23-31); Chloride 104 mmol/L (98-107); Estimated GFR-MDRD 49; Glucose 111 mg/dL (83-110); Sodium 143 mmol/L (136-145)
[2020-04-02 15:36] LABS: Band 8 % (5-11); Eosinophils 2 % (0-10); Hemoglobin 10.2 g/dL (14.0-18.0); Lymphocytes 10 % (21-51); MDiff Complete? YES; Mean Corpuscular HGB CONC 31.3 g/dL (32.0-36.0); Mean Corpuscular Hemoglobin 28.8 pg (27.0-31.0); Mean Corpuscular Volume 91.8 fL (78.0-98.0); Mean Platelet Volume 8.1 fL (7.4-10.4); Monocytes 6 % (0-10); Neutrophil 73 % (42-75); Nucleated RBC 8 % (0); Platelet Count 217 thou/uL (130-400); Platelet Morphology Comment Appears Adequate; RBC Distribution Width 17.8 % (11.5-14.5); RBC Morphology Normal; Red Blood Cell (RBC) Count 3.57 mill/uL (4.70-6.10); White Blood Cell (WBC) Count 23.2 thou/uL (4.8-10.8)
--- NOTE | 2020-04-02 16:58 | CT ---
CT THORAX WITH CONTRAST CT ABDOMEN WITH CONTRAST CT PELVIS WITH CONTRAST: DATE: 04/02/2020 HISTORY: 80-year-old male with sepsis TECHNIQUE: IV iodinated contrast media: Administered Oral contrast media: Not administered. Single phase scans of thorax, abdomen, and pelvis. COMPARISON: 02/06/2020 FINDINGS: Lungs:Limited evaluation because of breathing motion artifact. New moderate sized can fluid consolidation at right middle lobe, extending from right hilum towards a nterolateral pleural surface., With multifocal satellite consolidations. Patchy nodular right lower lobe infiltrate has become worse, with multiple small consolidations. Patchy nodular left lower lobe infiltrate different in distribution, but no improvement. Perhaps slig ht worsening. No pleural effusion or pneumothorax. Mediastinum and deon: Multiple moderate sized noncalcified mediastinal lymph nodes, plus calcified rodriges bcarinal node and partially calcified bilateral hilar lymphadenopathy. Unchanged. Thoracic aorta: No dissection or aneurysm. heart: No pericardial effusion. Liver: Unremarkable. Spleen: Splenomegaly. Now appears slightly worse. Right kidney: Small size. Moderate to severe right hydronephrosis. No interval change. Left kidney: Unremarkable. Abdominal aorta: No aneurysm or dissection. Small intestine: Multiple dilated small bowel loops with air-fluid levels remain. There is Fecalization of small bowel loops in the right side, consistent with small bowel obstruction . Collapse of some of the ileal loops. Previously demonstrated oral contrast material is no longer present. Large intestine: Moderate to large volume of stool. No distention. No obvious diverticulitis, althoug h lack of visceral fat lowers the sensitivity for such. Again noted is the long vascular graft, with proximal anastomosis at the right subclavian or axillary region, and ascending along right lateral subcutaneous fat superficially down the chest and abdomen, with disconnection 6.5 cm superior to right iliac crest, then with distal catheter fragment beginning 2.5 cm superior to iliac crest, and traveling down the right anterior thigh. Multiple surgical clips in the groin bilaterally with transversely oriented anterior superficial elena t connecting bilateral common femoral arteries. No ascites or pneumoperitoneum. Rectum distended with stool with mural thickening. Transverse diameter of rectum 6.5 cm. Mural thickn ess up to 1 cm. Skeleton: No destructive osseous lesion. No pelvic fracture or dislocation. No abscess identified within abdominal cavity or pelvic cavity. Austin catheter within empty urinary bladder, new since prior CT. IMPRESSION: 1) interval worsening of pneumonia in the bilateral lower lobes, and new right middle lobe pneumonia. 2) evidence for small bowel obstruction. 3) slight interval worsening of splenomegaly. 4) small right kidney with chronic high-grade right hydronephrosis. 5.) Bifemoral arterial graft. 6) long graft from right subclavian artery down to right thigh. This is disconnected. 7) mediastinal and bilateral hilar lymphadenopathy, unchanged. 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
[2020-04-02] MEDS: Piperacillin/Tazobactam 4.5 GM in Sodium Chloride 0.9% 100 ML IVPB SCH (17:11)
[2020-04-02] MEDS: Sodium Chloride 0.9% 1,000 ML IV SCH (17:11)
[2020-04-02] MEDS: Vancomycin HCl 1 GM in Sodium Chloride 0.9% 250 ML 250 ML IVPB SCH ×2 (17:13→17:35)
[2020-04-02] MEDS ORDERED: Sodium Chloride 0.9% 1,000 ML IV SCH (17:15)
[2020-04-02 17:54] LABS: Bilirubin Negative (Negative); Blood, Urine Trace (Negative); Clarity Clear (Clear); Glucose, Urine (Dipstick) Negative (Negative); Ketone, Urine Negative (Negative); Leukocyte Moderate (Negative); Nitrite Negative (Negative); Protein, Urine (Dipstick) > or equal to 300 mg/dL (Neg-Trace); Urobilinogen 0.2 mg/dL (Less than 2); pH, Urine 8.5 (5.0-9.0)
[2020-04-02 17:55] LABS: Bacteria/HPF 4+ HPF (None Seen); RBC/HPF 0-3 HPF (0-3); Squamous Epithelial 0-3 HPF (0-3)
--- NOTE | 2020-04-02 18:48 | PRG ---
DATE OF SERVICE: 04/02/2020 SUBJECTIVE: Mr. Coulter had an episode of vomiting. Dr. Stoddard had ordered a KUB and some medicine for nausea. The patient states ate last night. He is having regular bowel movements. OBJECTIVE: VITAL SIGNS: He is afebrile, heart rate 103, respirations 18, oxygen saturation 96%, blood pressure 140/67. CARDIOVASCULAR SYSTEM: S1 and S2 plus. RESPIRATORY SYSTEM: Normal vesicular breath sounds. ABDOMEN: Soft and nontender. Bowel sounds heard in all quadrants. EXTREMITIES: Right AKA. CENTRAL NERVOUS SYSTEM: Generalized weakness. IMPRESSION: 1. Episode of nausea and vomiting. KUB shows mildly distended small bowel loops, but bowel sounds are heard. Question of obstruction. We will continue to monitor. 2. Benign prostatic hyperplasia. 3. Hypertension. 4. Peripheral vascular disease. 5. Myelofibrosis. PLAN: 1. Continue current medications. 2. Make him n.p.o. if he has another episode of vomiting. 3. Continue therapy. 4. Decubitus precautions. 5. Stress ulcer prophylaxis. 6. DVT prophylaxis. 7. Routine laboratory values. Job ID: [id number]
[2020-04-02] MEDS ORDERED: Vancomycin HCl 1 GM in Sodium Chloride 0.9% 250 ML 250 ML IVPB SCH (19:00)
[2020-04-03] MEDS: Sodium Chloride 0.9% 1,000 ML IV SCH ×2 (00:01→04:32)
[2020-04-03] MEDS: Piperacillin/Tazobactam 4.5 GM in Sodium Chloride 0.9% 100 ML IVPB SCH ×2 (01:01→09:50)
[2020-04-03 08:42] LABS: Anion Gap 22 mmol/L (10-20); BUN (Urea Nitrogen) 55 mg/dL (8.4-25.7); Calc. Creatinine Clearance 22 mL/min (70-130); Calcium 8.4 mg/dL (7.8-10.44); Carbon Dioxide 14 mmol/L (23-31); Chloride 113 mmol/L (98-107); Estimated GFR-MDRD 43; Glucose 100 mg/dL (83-110); Potassium 5.1 mmol/L (3.5-5.1); Sodium 144 mmol/L (136-145)
[2020-04-03 08:49] LABS: Hemoglobin 7.5 g/dL (14.0-18.0); Mean Corpuscular HGB CONC 30.6 g/dL (32.0-36.0); Mean Corpuscular Hemoglobin 28.2 pg (27.0-31.0); Mean Corpuscular Volume 92.3 fL (78.0-98.0); Mean Platelet Volume 7.9 fL (7.4-10.4); Platelet Count 162 thou/uL (130-400); RBC Distribution Width 18.5 % (11.5-14.5); Red Blood Cell (RBC) Count 2.64 mill/uL (4.70-6.10)
[2020-04-03 08:50] LABS: MDiff Complete? YES
[2020-04-03 08:51] LABS: Anisocytosis SLIGHT = 6-15 cells (100X) (0-5/hpf); Band 4 % (5-11); Blast 1 % (0-0); Hypochromia SLIGHT = 6-15 cells (100X) (0-5/hpf); Lymphocytes 7 % (21-51); Monocytes 24 % (0-10); Neutrophil 63 % (42-75); Nucleated RBC 10 % (0); Platelet Morphology Comment Appears Adequate
[2020-04-03 08:54] VITALS: BP 115/58; TEMP 98.5
[2020-04-03] MEDS: Ferrous Sulfate 325 MG TAB PO SCH (10:34)
[2020-04-03] MEDS: Folic Acid 1 MG TAB PO SCH (10:34)
[2020-04-03] MEDS: Gabapentin 300 MG CAP PO SCH (10:34)
[2020-04-03 11:29] LABS: Lactic Acid 1.2 mmol/L (0.5-2.2)
--- NOTE | 2020-04-04 01:58 | DIS ---
DATE OF ADMISSION: 03/12/2020 DATE OF DISCHARGE: 04/03/2020 PRINCIPAL DIAGNOSIS: Sepsis, likely secondary to pneumonia, possibly aspiration. SECONDARY DIAGNOSES: 1. Small-bowel obstruction. 2. Peripheral vascular disease, status post recent right above-knee amputation. 3. Benign prostatic hyperplasia. 4. Hypertension. 5. Myelofibrosis. 6. Worsening azotemia. 7. Lactic acidosis. COMPLICATIONS: None. ADVERSE REACTIONS: None. PROCEDURES: 1. CT scan of the abdomen and pelvis. 2. KUB of the abdomen. 3. Blood cultures. 4. Physical therapy. HOSPITAL COURSE: Patient was admitted on 03/12/[address] Stoddard, who was in the hospital for high-grade small bowel obstruction and UTI. He required exploratory laparotomy and lysis of adhesions. He developed postoperative hypoxemic respiratory failure requiring mechanical ventilation. He also needed to be on temporary dialysis due to acute renal failure. He also required right above-knee amputation due to PVD. He was felt to be a candidate for inpatient rehabilitation and transferred here. The patient has been doing reasonably well until yesterday when he had an episode of nausea and vomiting in the morning. KUB showed some dilated loops of small bowel. He did have bowel sounds, but they were hyperactive. He was not febrile when I saw him as I was filling in for Dr. Stoddard. Dr. Stoddard had already ordered Bentyl and Zofran. I advised nursing to monitor him and then call me with any changes. Apparently a few hours later, patient had acute respiratory failure with hypoxemia and Dr. Stoddard was called. Sepsis alert was initiated. He underwent a CT abdomen and pelvis, which showed new right-sided lung infiltrates along with small-bowel obstruction. He was started on antibiotics for sepsis protocol and IV fluids. He is now on Zosyn and vancomycin. For some reason, he remained on his regular diet. When I saw him this morning, he was eating his breakfast. I listened to his bowel sounds and he still has some hyperactive bowel sounds. He is not passing any flatus. I asked nursing to make him n.p.o. right now and then I also ordered a stat CBC, BMP, and a lactic acid level. His CBC shows a white count of 50,000. His BUN and creatinine have increased to I think 58 and 1.85 and his lactic acid is up to 2.4. Given his history of recent small-bowel obstruction requiring exploratory laparotomy, new right-sided pulmonary infiltrate with history of acute respiratory failure requiring ventilator management, it was felt best to transfer patient to [facility] for specialist care and for the facilities available. He will continue on his IV fluids and his antibiotics. His sister will be informed by the nursing staff. PHYSICAL EXAMINATION: VITAL SIGNS: His current vital signs show a heart rate of 110, respirations are 24, oxygen saturation is 99% on nasal cannula, I think he is on 5 L. He is afebrile. Blood pressure is 110/54. HEENT: Normocephalic, atraumatic. CARDIOVASCULAR SYSTEM: S1-S2 plus sinus tachycardia. RESPIRATORY SYSTEM: Normal vesicular breath sounds with scattered rhonchi and occasional crackles. ABDOMEN: Soft, nontender. Bowel sounds are hyperactive. EXTREMITIES: Without cyanosis or clubbing. Right AKA. CENTRAL NERVOUS SYSTEM: Patient is alert and responsive. LABORATORY VALUES: From this morning shows a white count of 50,000; H and H 7.5 and 24.4, it was 10.2 and 33.4 yesterday, but he has been always been running around 7.3 to 8, so yesterday was probably dehydration. Sodium 144, potassium 5.1, BUN and creatinine 55 and 1.85, which were 53 and 1.65 yesterday and day before yesterday 46 and 1.34 with lactic acid up to 2.4. IMPRESSION: 1. Sepsis. 2. Hypertension. 3. BPH. 4. Peripheral vascular disease. 5. History of small-bowel obstruction with possibly recurrent small-bowel obstruction. 6. Hypoxemic respiratory failure. 7. Worsening azotemia. PLAN: 1. Continue current medications. 2. NPO. 3. Transfer to [facility]. He probably will go to the emergency room here and then transferred to the emergency room there. He probably needs surgical evaluation and Infectious Disease evaluation. For full details, please see chart. Job ID: [id number]
== END 2020-04-03 11:30 | disposition short-term general hospital (02) | DRG 559 ==
LOC: NAV ACUTE 19:41 → UNDOADMIN 19:41
PROVIDERS: ADMIT Family Medicine; ATTEND Family Medicine
DX: Z47.81 Encounter for orthopedic aftercare following surgical amputation (principal); A41.9 Sepsis, unspecified organism; J69.0 Pneumonitis due to inhalation of food and vomit; J96.01 Acute respiratory failure with hypoxia; N39.0 Urinary tract infection, site not specified; E87.2 Acidosis; D75.81 Myelofibrosis; K56.609 Unspecified intestinal obstruction, unspecified as to partial versus complete obstruction; N40.0 Benign prostatic hyperplasia without lower urinary tract symptoms; K59.00 Constipation, unspecified; I12.9 Hypertensive chronic kidney disease with stage 1 through stage 4 chronic kidney disease, or unspecified chronic kidney disease; N18.2 Chronic kidney disease, stage 2 (mild); B37.9 Candidiasis, unspecified; I73.9 Peripheral vascular disease, unspecified; N41.1 Chronic prostatitis; R11.2 Nausea with vomiting, unspecified; Z79.01 Long term (current) use of anticoagulants; Z89.611 Acquired absence of right leg above knee
CPT/HCPCS: 36415; 71045; 71260; 74018; 74177; 80048; 81001; 83605; 85025; 87040; J2543; J3370; J3490; J7050; Q0162; Q5105; Q9967

== ENCOUNTER 2020-04-03 09:10 | Emergency (ER) | payer OTHER | END 2020-04-03 11:15 | disposition short-term general hospital (02) | LOC: NAV ERS 09:10 | DX: A41.9 Sepsis, unspecified organism (principal); K56.609 Unspecified intestinal obstruction, unspecified as to partial versus complete obstruction; E78.5 Hyperlipidemia, unspecified; I10 Essential (primary) hypertension; Z79.899 Other long term (current) drug therapy | CPT/HCPCS: 93005; 94760 ==